=== PATIENT | male | born 1960 | race African-American/Black ===

== ENCOUNTER 2016-05-06 15:55 | Emergency (ER) | payer OTHER ==
[2016-05-06] MEDS ORDERED: ACETAMINOPHEN 325 MG TABLET PO ONE (16:46)
--- NOTE | 2016-05-06 18:24 | ER Document Report ---
ED ENT - General Chief Complaint: Ear Pain Stated Complaint: HEADACHE,EARACHE,CONGESTION Information source: Patient, Relative TRAVEL OUTSIDE OF THE [place] IN LAST 30 DAYS: No - HPI Patient complains to provider of: Ear problem Onset: Yesterday Onset/Duration: Gradual Severity: Moderate Pain Level: 2 Location of pain: Ears - Related Data Allergies/Adverse Reactions: No Known Allergies Allergy (Verified 05/06/16 16:44) Past Medical History - Social History Smoking Status: Current Some Day Smoker Chew tobacco use (# tins/day): No Frequency of alcohol use: Occasional Drug Abuse: None Family History: Reviewed & Not Pertinent Patient has suicidal ideation: No Patient has homicidal ideation: No - Past Medical History Cardiac Medical History: Reports: Hx Hypertension - out of medicine Pulmonary Medical History: Denies: Hx Tuberculosis Neurological Medical History: Denies: Hx Seizures Endocrine Medical History: Reports: Hx Diabetes Mellitus Type 1, Hx Diabetes Mellitus Type 2 Skin Medical History: Denies Hx Eczema, Reports Hx MRSA, Denies Hx Psoriasis Psychiatric Medical History: Reports: Hx Depression Infectious Medical History: Reports: Hx MRSA Past Surgical History: Denies: Hx Pacemaker - Immunizations Immunizations up to date: Yes Hx Diphtheria, Pertussis, Tetanus Vaccination: Yes Review of Systems - Review of Systems Constitutional: No symptoms reported EENT: Ear discharge, Nose congestion, Sinus pressure, Throat pain Cardiovascular: No symptoms reported Respiratory: No symptoms reported Gastrointestinal: No symptoms reported Genitourinary: No symptoms reported Male Genitourinary: No symptoms reported Musculoskeletal: No symptoms reported Skin: No symptoms reported Hematologic/Lymphatic: No symptoms reported Neurological/Psychological: No symptoms reported Physical Exam - Vital signs Vitals: Temp Pulse Resp BP Pulse Ox 97.5 F 109 H 22 H 163/97 H 100 05/06/16 16:18 05/06/16 16:18 05/06/16 16:18 05/06/16 16:18 05/06/16 16:18 Interpretation: Normal - General General appearance: Appears well, Alert - HEENT Head: Normocephalic, Atraumatic Eyes: Normal Pupils: PERRL External canal: Erythema Tympanic membrane: Bulging Hearing loss: Right Sinus: Maxillary, Tenderness Mucous membranes: Normal - Respiratory Respiratory status: No respiratory distress Chest status: Nontender Breath sounds: Normal Chest palpation: Normal - Cardiovascular Rhythm: Regular Heart sounds: Normal auscultation Murmur: No - Abdominal Inspection: Normal Distension: No distension Bowel sounds: Normal Tenderness: Nontender Organomegaly: No organomegaly - Back Back: Normal, Nontender - Extremities General upper extremity: Normal inspection, Nontender, Normal color, Normal ROM , Normal temperature General lower extremity: Normal inspection, Nontender, Normal color, Normal ROM , Normal temperature, Normal weight bearing. No: Sary's sign - Neurological Neuro grossly intact: Yes Cognition: Normal Orientation: AAOx4 [place] Coma Scale Eye Opening: Spontaneous [place] Coma Scale Verbal: Oriented [place] Coma Scale Motor: Obeys Commands [place] Coma Scale Total: 15 Speech: Normal Motor strength normal: LUE, RUE, LLE, RLE Sensory: Normal - Psychological Associated symptoms: Normal affect, Normal mood - Skin Skin Temperature: Warm Skin Moisture: Dry Skin Color: Normal Course - Vital Signs Vital signs: Temp Pulse Resp BP Pulse Ox 97.5 F 109 H 22 H 163/97 H 100 05/06/16 16:18 05/06/16 16:18 05/06/16 16:18 05/06/16 16:18 05/06/16 16:18 Discharge - Discharge Clinical Impression: Otitis media Disposition: HOME, SELF-CARE Additional Instructions: Follow-up with private doctor in 1 to 2 days for final radiology readings please return to the emergency room for any change worsening condition. Follow up with private [facility] for all other routine health care needs. Prescriptions: Amox Tr/Potassium Clavulanate [Augmentin 875-125 Tablet] 1 tab PO BID 10 Days Prednisone [Deltasone 20 mg Tablet] 3 tab PO DAILY 5 Days Forms: Elevated Blood Pressure
[2016-05-06 18:39] VITALS: BP 152/88
== END 2016-05-06 18:39 | disposition home or self-care (01) ==
LOC: ER 15:55
DX: H66.90 Otitis media, unspecified, unspecified ear (principal); R09.81 Nasal congestion; H92.10 Otorrhea, unspecified ear; R07.0 Pain in throat; E11.9 Type 2 diabetes mellitus without complications; I10 Essential (primary) hypertension; F17.200 Nicotine dependence, unspecified, uncomplicated; Z86.14 Personal history of Methicillin resistant Staphylococcus aureus infection
CPT/HCPCS: 99282

== ENCOUNTER 2016-05-26 16:22 | Inpatient (IN) | payer OTHER ==
[2016-05-26] MEDS ORDERED: IBUPROFEN 800 MG TABLET PO ONE (16:54)
--- NOTE | 2016-05-26 16:54 | ER Document Report ---
ED Medical Screen (RME) - General Chief Complaint: Arm Problem Stated Complaint: LEFT ARM PAIN, SEWLLING Time seen by provider: 16:50 Mode of Arrival: Ambulatory Information source: Patient Notes: 55-year-old male presents to ED for cellulitis of his left lower arm to just above his elbow. He states his been red and swollen for up little over a week. He states he has a history of MRSA.. He states he has not been to a doctor for this episode of cellulitis. He states it comes and goes. I have greeted and performed a rapid initial assessment of this patient. A comprehensive ED assessment and evaluation of the patient, analysis of test results and completion of medical decision making process will be conducted by an additional ED providers. TRAVEL OUTSIDE OF THE [place] IN LAST 30 DAYS: No - Related Data Allergies/Adverse Reactions: No Known Allergies Allergy (Verified 05/06/16 16:44) Past Medical History - Past Medical History Cardiac Medical History: Reports: Hx Hypertension - out of medicine Pulmonary Medical History: Denies: Hx Tuberculosis Neurological Medical History: Denies: Hx Seizures Endocrine Medical History: Reports: Hx Diabetes Mellitus Type 1, Hx Diabetes Mellitus Type 2 Skin Medical History: Denies Hx Eczema, Reports Hx MRSA, Denies Hx Psoriasis Psychiatric Medical History: Reports: Hx Depression Infectious Medical History: Reports: Hx MRSA Past Surgical History: Denies: Hx Pacemaker - Immunizations Immunizations up to date: Yes Hx Diphtheria, Pertussis, Tetanus Vaccination: Yes Physical Exam - Vital signs Vitals: Temp Pulse Resp BP Pulse Ox 98.3 F 116 H 24 H 159/106 H 99 05/26/16 16:45 05/26/16 16:45 05/26/16 16:45 05/26/16 16:45 05/26/16 16:45 Course - Vital Signs Vital signs: Temp Pulse Resp BP Pulse Ox 98.3 F 116 H 24 H 159/106 H 99 05/26/16 16:45 05/26/16 16:45 05/26/16 16:45 05/26/16 16:45 05/26/16 16:45
[2016-05-26 17:52] LABS: ABSOLUTE BASOPHILS # (AUTO) 0.1 10^3/uL (0.0-0.2); ABSOLUTE EOSINOPHILS # (AUTO) 0.1 10^3/uL (0.0-0.6); ABSOLUTE LYMPHOCYTES (AUTO) 1.1 10^3/uL (0.5-4.7); ABSOLUTE MONOCYTES (AUTO) 1.4 10^3/uL (0.1-1.4); ABSOLUTE NEUT (AUTO) 13.3 10^3/uL (1.7-8.2); BASOPHILS % (AUTO) 0.7 % (0-2); EOSINOPHILS % (AUTO) 0.4 % (0-6); HEMATOCRIT 39.3 % (37.9-51.0); HEMOGLOBIN 12.4 g/dL (13.5-17.0); HGB HCT DIFFERENCE -2.1; LYMPHOCYTES % (AUTO) 6.8 % (13-45); MEAN CORPUSCULAR HEMOGLOBIN 25.1 pg (27.0-33.4); MEAN CORPUSCULAR HGB CONC 31.6 g/dL (32.0-36.0); MEAN CORPUSCULAR VOLUME 80 fl (80-97); RED BLOOD COUNT 4.95 10^6/uL (4.35-5.55); RED CELL DISTRIBUTION WIDTH 13.9 % (11.5-14.0); SEGMENTED NEUTROPHILS % (AUTO) 83.1 % (42-78)
[2016-05-26 18:09] LABS: ALANINE AMINOTRANSFERASE 51 U/L (21-72); ALBUMIN 3.4 g/dL (3.5-5.0); ALKALINE PHOSPHATASE 146 U/L (38-126); ANION GAP 19 (5-19); ASPARTATE AMINO TRANSFERASE 40 U/L (17-59); BILIRUBIN,TOTAL 0.6 mg/dL (0.2-1.3); BLOOD UREA NITROGEN 21 mg/dL (7-20); CALCIUM 8.8 mg/dL (8.4-10.2); CARBON DIOXIDE 20 mmol/L (22-30); CHLORIDE 95 mmol/L (98-107); CREATININE RESULT 1.58 mg/dL (0.52-1.25); POTASSIUM 5.5 mmol/L (3.6-5.0); TOTAL PROTEIN 6.8 g/dL (6.3-8.2)
[2016-05-26] MEDS ORDERED: VANCOMYCIN HCL INJ 1000 MG VIAL IV ONE (18:24)
--- NOTE | 2016-05-26 18:24 | ER Document Report ---
ED Extremity Problem, Upper - General Chief Complaint: Wound Infection Stated Complaint: LEFT ARM PAIN, SEWLLING Time seen by provider: 18:21 Mode of Arrival: Ambulatory Information source: Patient TRAVEL OUTSIDE OF THE [place] IN LAST 30 DAYS: No - HPI Patient complains to provider of: Pain, Swelling, Left, Arm Onset: Last week Recent injury: No Quality of pain: Achy, Fullness, Pressure Severity of pain: Moderate Pain Level: 5 Exacerbated by: Movement Relieved by: Nothing Similar symptoms previously: Yes Recently seen / treated by doctor: No Notes: 55-year-old male presents to the emergency room complaining of redness swelling and increased warmth to his left upper extremity that's been going on for the past week to week and half and worsening, he denies any fever, no drainage, no injury, patient has a history of MRSA skin infections 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, he reports a history of diabetes and hypertension in the past as well which is been unmedicated for years, stating that he was able to control it with diet and exercise in the past and therefore came off of medications, he has not seen a primary care provider in several years as well - Related Data Allergies/Adverse Reactions: No Known Allergies Allergy (Verified 05/06/16 16:44) Home Medications: Current Home Medications No Home Medications 05/26/16 [History] Past Medical History - General Information source: Patient - Social History Smoking Status: Current Some Day Smoker Family History: Reviewed & Not Pertinent Patient has suicidal ideation: No Patient has homicidal ideation: No - Past Medical History Cardiac Medical History: Reports: Hx Hypertension - out of medicine Pulmonary Medical History: Denies: Hx Tuberculosis Neurological Medical History: Denies: Hx Seizures Endocrine Medical History: Reports: Hx Diabetes Mellitus Type 1, Hx Diabetes Mellitus Type 2 Renal/ Medical History: Denies: Hx Peritoneal Dialysis Skin Medical History: Denies Hx Eczema, Reports Hx MRSA, Denies Hx Psoriasis Psychiatric Medical History: Reports: Hx Depression Infectious Medical History: Reports: Hx MRSA Past Surgical History: Denies: Hx Pacemaker - Immunizations Immunizations up to date: Yes Hx Diphtheria, Pertussis, Tetanus Vaccination: Yes Review of Systems - Review of Systems Constitutional: No symptoms reported EENT: No symptoms reported Cardiovascular: No symptoms reported Respiratory: No symptoms reported Gastrointestinal: No symptoms reported Genitourinary: No symptoms reported Male Genitourinary: No symptoms reported Musculoskeletal: No symptoms reported Skin: See HPI Hematologic/Lymphatic: No symptoms reported Neurological/Psychological: No symptoms reported -: Yes All other systems reviewed and negative Physical Exam - Vital signs Vitals: Temp Pulse Resp BP Pulse Ox 98.3 F 116 H 24 H 159/106 H 99 05/26/16 16:45 05/26/16 16:45 05/26/16 16:45 05/26/16 16:45 05/26/16 16:45 Interpretation: Hypertensive, Tachycardic - General General appearance: Appears well, Alert In distress: None - HEENT Head: Normocephalic, Atraumatic Eyes: Normal Pupils: PERRL - Respiratory Respiratory status: No respiratory distress Chest status: Nontender Breath sounds: Normal Chest palpation: Normal - Cardiovascular Rhythm: Regular Heart sounds: Normal auscultation Murmur: No - Abdominal Inspection: Obese Distension: No distension Bowel sounds: Normal Tenderness: Nontender Organomegaly: No organomegaly - Back Back: Normal, Nontender - Extremities General upper extremity: Normal ROM General lower extremity: Normal inspection, Nontender, Normal color, Normal ROM , Normal temperature, Normal weight bearing. No: Sary's sign Elbow: Other - Patient with increased redness swelling and warmth to the left upper extremity ending inferior elbow forearm, patient has full range of motion in the elbow, distal sensation and motor is intact with 2+ radial pulses and brisk capillary refill, there is no area of palpable fluctuance - Neurological Neuro grossly intact: Yes Cognition: Normal Orientation: AAOx4 [place] Coma Scale Eye Opening: Spontaneous [place] Coma Scale Verbal: Oriented [place] Coma Scale Motor: Obeys Commands [place] Coma Scale Total: 15 Speech: Normal Motor strength normal: LUE, RUE, LLE, RLE Sensory: Normal - Psychological Associated symptoms: Normal affect, Normal mood - Skin Skin Temperature: Warm Skin Moisture: Dry Skin Color: Normal Course - Re-evaluation Re-evalutation: 05/27/16 00:16 Patient with left arm cellulitis, hyperglycemia, started on antibiotics IV fluids, discussed with the hospitalist who agrees to admit for further evaluation and treatment - Vital Signs Vital signs: Temp Pulse Resp BP Pulse Ox 98.3 F 101 H 16 152/74 H 97 05/26/16 16:49 05/26/16 22:55 05/26/16 22:55 05/26/16 22:55 05/26/16 22:55 - Laboratory Result Diagrams: 05/26/16 17:40 05/26/16 17:40 Laboratory results interpreted by me: 05/26/16 05/26/16 05/26/16 17:40 17:40 17:40 WBC 16.0 H Hgb 12.4 L MCH 25.1 L MCHC 31.6 L Seg Neutrophils % 83.1 H Lymphocytes % 6.8 L Absolute Neutrophils 13.3 H Sodium 134.0 L Potassium 5.5 H Chloride 95 L Carbon Dioxide 20 L BUN 21 H Creatinine 1.58 H Est GFR ( Amer) 56 L Est GFR (Non-Af Amer) 46 L Glucose 563 H* Hemoglobin A1c % Serum Osmolality 304 H Alkaline Phosphatase 146 H Albumin 3.4 L 05/26/16 17:40 WBC Hgb MCH MCHC Seg Neutrophils % Lymphocytes % Absolute Neutrophils Sodium Potassium Chloride Carbon Dioxide BUN Creatinine Est GFR ( Amer) Est GFR (Non-Af Amer) Glucose Hemoglobin A1c % > 14.0 H Serum Osmolality Alkaline Phosphatase Albumin Discharge - Discharge Clinical Impression: Left arm cellulitis, Hyperglycemia Condition: Stable Disposition: ADMITTED INPATIENT Admitting Provider: Hospitalist Unit Admitted: Telemetry
[2016-05-26 18:25] LABS: GLUCOSE 563 mg/dL (75-110)
[2016-05-26] MEDS ORDERED: NORMAL SALINE 1000 ML 1,000 ML IV PRN ×2 (18:25→18:33)
[2016-05-26] MEDS ORDERED: GLUCAGON,HUMAN RECOMB 1 MG INJ IM PRN (19:47)
[2016-05-26] MEDS ORDERED: DEXTROSE 40% GEL 15 GM TUBE PO PRN ×2 (19:47)
[2016-05-26] MEDS ORDERED: DEXTROSE 50%-WATER 25 GM/50 ML DISP.SYRIN IV PRN ×2 (19:47)
[2016-05-26] MEDS ORDERED: MAGNESIUM HYDROXIDE SUSP 30 ML UDCUP PO PRN (19:51)
[2016-05-26] MEDS ORDERED: IPRATROPIUM/ALBUTEROL 0.5-2.5 MG/3 ML AMPUL NEB PRN (19:51)
[2016-05-26] MEDS ORDERED: INSULIN REG, HUMAN 100 UNIT/ML 3 ML VIAL (PYX) IV ONE (20:15)
[2016-05-26] MEDS ORDERED: HYDRALAZINE HCL 25 MG TABLET PO ONE (20:30)
[2016-05-26] MEDS ORDERED: CLINDAMYCIN 900 MG/D5W RTU 50 ML IV ONE (20:30)
[2016-05-26] MEDS ORDERED: INSULIN GLARGINE,HUM.REC.ANLOG 300 UNIT/3 ML INSULN.PEN SUBCUT ONE (23:00)
[2016-05-26 23:04] LABS: VENOUS BLOOD BASE EXCESS -4.9 mmol/L; VENOUS BLOOD HCO3 19.3 mmol/L (20-32); VENOUS BLOOD PCO2 32.9 mmHg (35-63); VENOUS BLOOD PH 7.39 (7.30-7.42)
[2016-05-27] MEDS ORDERED: INSULIN GLARGINE,HUM.REC.ANLOG 1,000 UNIT/10 ML UNIT SUBCUT ONE (00:22)
[2016-05-27] MEDS: INSULIN LISPRO 100 UNIT/ML 3 ML VIAL SUBCUT PRN ×5 (00:36→23:47)
[2016-05-27] MEDS: NORMAL SALINE 1000 ML 1,000 ML IV SCH ×2 (00:36→12:23)
[2016-05-27] MEDS: HEPARIN SOD (PORCINE) 5,000 UNIT/ML 1 ML SYRINGE SUBCUT SCH ×3 (00:37→13:24)
[2016-05-27] MEDS ORDERED: VANCOMYCIN HCL 0 MG in DEXTROSE 5%-WATER 250 ML IV NR (03:45)
--- NOTE | 2016-05-27 03:45 | PDOC H&P ---
History of Present Illness Admission Date/PCP: 05/26/16 19:43 Patient complains of: Left forearm pain and swelling History of Present Illness: RONAK GARCIA is a 55 year old male with a past medical history of diet- controlled diabetes, Morbid obesity, Tobacco Dependence and multiple MRSA abscesses. Who had been in his usual state of health until approximately 4 days ago noting pain and swelling and erythema to his left forearm prompting ER evaluation, without open ulcer or exudate, without palpitations or axillary pain. He's found to have markedly erythema swelling in the left forearm with a somewhat reduced range of motion secondary to pain not involving the joint, without obvious fluctuance. He started on empiric vancomycin and referred to the hospitalist for admission. Past Medical History Cardiac Medical History: Reports: Hypertension - out of medicine Pulmonary Medical History: Denies: Tuberculosis Neurological Medical History: Denies: Seizures Endocrine Medical History: Reports: Diabetes Mellitus Type 1, Diabetes Mellitus Type 2, Obesity Skin Medical History: Denies: Eczema, Psoriasis Psychiatric Medical History: Reports: Depression, Tobacco Dependency Infectious Medical History: Reports: Methicillin-Resistant Staph Aureus Past Surgical History Past Surgical History: Denies: Pacemaker Social History Information Source: Patient Lives with: Family Smoking Status: Current Some Day Smoker Cigarettes Packs Per Day: 1 Frequency of Alcohol Use: None Hx Recreational Drug Use: No Drugs: None Hx Prescription Drug Abuse: No - Advance Directive Resuscitation Status: Full Code Family History Family History: CAD, DM Parental Family History Reviewed: Yes Children Family History Reviewed: Yes Sibling(s) Family History Reviewed.: Yes Medication/Allergy Home Medications: No Home Medications 05/26/16 Allergies/Adverse Reactions: No Known Allergies Allergy (Verified 05/06/16 16:44) Review of Systems Constitutional: PRESENT: fatigue. ABSENT: chills, fever(s), headache(s), weight gain, weight loss Eyes: ABSENT: visual disturbances Ears: ABSENT: hearing changes Cardiovascular: ABSENT: chest pain, dyspnea on exertion, edema, orthropnea, palpitations Respiratory: ABSENT: cough, hemoptysis Gastrointestinal: ABSENT: abdominal pain, constipation, diarrhea, hematemesis, hematochezia, nausea, vomiting Genitourinary: PRESENT: other - Polyuria. ABSENT: dysuria, hematuria Musculoskeletal: ABSENT: joint swelling Integumentary: ABSENT: rash, wounds Neurological: ABSENT: abnormal gait, abnormal speech, confusion, dizziness, focal weakness, syncope Psychiatric: ABSENT: anxiety, depression, homidical ideation, suicidal ideation Endocrine: ABSENT: cold intolerance, heat intolerance, polydipsia, polyuria Hematologic/Lymphatic: ABSENT: easy bleeding, easy bruising Physical Exam Vital Signs: Temp Pulse Resp BP Pulse Ox 98.5 F 111 H 19 165/78 H 100 05/27/16 00:09 05/27/16 00:15 05/27/16 00:09 05/27/16 00:09 05/27/16 00:09 Intake & Output 05/25/16 05/26/16 05/27/16 11:59 11:59 11:59 Weight 149.2 kg General appearance: PRESENT: cooperative, mild distress, morbidly obese Head exam: PRESENT: atraumatic, normocephalic Eye exam: PRESENT: conjunctiva pink, EOMI, PERRLA. ABSENT: scleral icterus Ear exam: PRESENT: normal external ear exam Mouth exam: PRESENT: moist, tongue midline Neck exam: ABSENT: carotid bruit, JVD, lymphadenopathy, thyromegaly Respiratory exam: PRESENT: clear to auscultation dick. ABSENT: rales, rhonchi, wheezes Cardiovascular exam: PRESENT: RRR. ABSENT: diastolic murmur, rubs, systolic murmur Pulses: PRESENT: normal dorsalis pedis pul Vascular exam: PRESENT: normal capillary refill GI/Abdominal exam: PRESENT: normal bowel sounds, soft. ABSENT: distended, guarding, mass, organolmegaly, rebound, tenderness Rectal exam: PRESENT: deferred Extremities exam: PRESENT: tenderness - Circumferential erythema to the left proximal forearm no open ulcer, fluctuance or exudate. ABSENT: joint swelling, pedal edema Musculoskeletal exam: PRESENT: tenderness - Left forearm tenderness with reduced range of motion secondary to tenderness no joint effusion. ABSENT: full ROM, normal inspection Neurological exam: PRESENT: alert, awake, oriented to person, oriented to place , oriented to time, oriented to situation, CN II-XII grossly intact. ABSENT: motor sensory deficit Psychiatric exam: PRESENT: appropriate affect, normal mood. ABSENT: homicidal ideation, suicidal ideation Skin exam: PRESENT: dry, erythema, intact. ABSENT: abrasion, cyanosis, jaundice Results Laboratory Results: 05/26/16 22:50 VBG pH 7.39 VBG pCO2 32.9 L VBG HCO3 19.3 L VBG Base Excess -4.9 Assessment & Plan - Diagnosis (1) Left arm cellulitis Is this a current diagnosis for this admission?: YesPlan: Collocated by History of MRSA and uncontrolled diabetes. vancomycin empirically in addition to clindamycin and symptomatically management,blood cultures pending follow-up CBC and chemistry (2) Diabetes 1.5, managed as type 1 Is this a current diagnosis for this admission?: YesPlan: Initiation of Lantus 20 twice a day and Humalog sliding scale will obtain an A1c , consider dietitian consult (3) Morbid obesity with BMI of 40.0-44.9, adult Is this a current diagnosis for this admission?: YesPlan: Avoid sedation will obtain dietitian consult (4) Hypertension Is this a current diagnosis for this admission?: YesPlan: Cozaar and hydralazine initiated (5) Tobacco abuse Is this a current diagnosis for this admission?: YesPlan: Tobacco Dependence patient received tobacco cessation counseling and offered nicotine replacement options (6) Acute renal failure Is this a current diagnosis for this admission?: YesPlan: Likely secondary to acute illness but collocated by a history of hypertension diabetes will IV fluid challenge avoid nephrotoxic meds and doses and reevaluate chemistry - Time Time Spent: 50 to 70 Minutes
[2016-05-27] MEDS ORDERED: VANCOMYCIN HCL INJ 1000 MG VIAL ONE (05:02)
[2016-05-27] MEDS: VANCOMYCIN HCL 1,000 MG in DEXTROSE 5%-WATER 250 ML IV SCH ×2 (05:10→07:15)
[2016-05-27] MEDS: HYDRALAZINE HCL 25 MG TABLET PO SCH ×3 (05:22→23:47)
[2016-05-27] MEDS: ACETAMINOPHEN 325 MG TABLET PO PRN ×3 (05:22→21:08)
[2016-05-27] MEDS ORDERED: CLINDAMYCIN 900 MG/D5W RTU 50 ML IV SCH (06:00)
[2016-05-27 06:28] LABS: ABSOLUTE BASOPHILS # (AUTO) 0.1 10^3/uL (0.0-0.2); ABSOLUTE EOSINOPHILS # (AUTO) 0.1 10^3/uL (0.0-0.6); ABSOLUTE LYMPHOCYTES (AUTO) 1.2 10^3/uL (0.5-4.7); ABSOLUTE MONOCYTES (AUTO) 1.5 10^3/uL (0.1-1.4); ABSOLUTE NEUT (AUTO) 10.9 10^3/uL (1.7-8.2); BASOPHILS % (AUTO) 0.4 % (0-2); EOSINOPHILS % (AUTO) 0.7 % (0-6); HEMATOCRIT 34.5 % (37.9-51.0); HEMOGLOBIN 11.1 g/dL (13.5-17.0); HGB HCT DIFFERENCE -1.2; LYMPHOCYTES % (AUTO) 8.8 % (13-45); MEAN CORPUSCULAR HEMOGLOBIN 25.1 pg (27.0-33.4); MEAN CORPUSCULAR HGB CONC 32.1 g/dL (32.0-36.0); MEAN CORPUSCULAR VOLUME 78 fl (80-97); MONOCYTES % (AUTO) 10.9 % (3-13); RED BLOOD COUNT 4.42 10^6/uL (4.35-5.55); RED CELL DISTRIBUTION WIDTH 13.7 % (11.5-14.0); SEGMENTED NEUTROPHILS % (AUTO) 79.2 % (42-78); WHITE BLOOD COUNT 13.8 10^3/uL (4.0-10.5)
[2016-05-27 06:46] LABS: ANION GAP 16 (5-19); BLOOD UREA NITROGEN 19 mg/dL (7-20); CALCIUM 8.3 mg/dL (8.4-10.2); CARBON DIOXIDE 19 mmol/L (22-30); CHLORIDE 100 mmol/L (98-107); CREATININE RESULT 1.26 mg/dL (0.52-1.25); GLUCOSE 368 mg/dL (75-110); POTASSIUM 4.6 mmol/L (3.6-5.0); SODIUM 134.6 mmol/L (137-145)
[2016-05-27] MEDS ORDERED: DOCUSATE SODIUM 100 MG/10 ML UDC PO SCH (10:00)
[2016-05-27] MEDS: CLINDAMYCIN 900 MG/D5W RTU 50 ML IV SCH ×2 (10:04→17:01)
[2016-05-27] MEDS: INSULIN GLARGINE,HUM.REC.ANLOG 300 UNIT/3 ML INSULN.PEN SUBCUT SCH ×2 (10:04→23:46)
[2016-05-27] MEDS: LOSARTAN POTASSIUM 50 MG TABLET PO SCH (10:05)
[2016-05-27] MEDS: DOCUSATE SODIUM 100 MG CAPSULE PO SCH ×2 (10:06→17:01)
[2016-05-27] MEDS ORDERED: METOPROLOL TARTRATE PF/INJ 5 MG/5 ML SDV IV ONE (15:06)
--- NOTE | 2016-05-27 15:31 | PDOC PROGRESS REPORT ---
Subjective Progress Note for:: 05/27/16 Subjective:: RONAK GARCIA is a 55 year old male with a past medical history of diet- controlled diabetes, Morbid obesity, Tobacco Dependence and multiple MRSA abscesses. Who had been in his usual state of health until approximately 4 days ago noting pain and swelling and erythema to his left forearm prompting ER evaluation, without open ulcer or exudate, without palpitations or axillary pain. He's found to have markedly erythema swelling in the left forearm with a somewhat reduced range of motion secondary to pain not involving the joint, without obvious fluctuance. He started on empiric vancomycin and referred to the hospitalist for admission. He now reports to me formation of a blister on the olecranon bursa. He denies fevers chills, continues to complain of pain and swelling in the arm. Nurses also noted with minimal exertion today he went into a short burst of atrial fibrillation with rapid ventricular rate into the 180s, once they got back into bed and settled him down some his heart rate also slowed back 104 and appears to be converted back to sinus tachycardia. ROS: Total 10 systems are reviewed with the patient pertinent positives and negatives noted above. Remaining systems are negative. Physical Exam Vital Signs: Temp Pulse Resp BP Pulse Ox 99.2 F 109 H 19 153/82 H 97 05/27/16 12:26 05/27/16 14:00 05/27/16 12:26 05/27/16 12:26 05/27/16 12:26 Intake & Output 05/26/16 05/27/16 05/28/16 06:59 06:59 06:59 Intake Total 1755 600 Balance 1755 600 Weight 149.2 kg General appearance: PRESENT: no acute distress, obese, well-developed Head exam: PRESENT: atraumatic, normocephalic Eye exam: PRESENT: conjunctival injection, EOMI, PERRLA Mouth exam: PRESENT: dry mucosa Neck exam: PRESENT: full ROM. ABSENT: JVD Respiratory exam: PRESENT: clear to auscultation dick, unlabored. ABSENT: accessory muscle use Cardiovascular exam: PRESENT: tachycardia - As per history of present illness, currently in sinus tachycardia Pulses: PRESENT: normal radial pulses - Even in the affected arm, normal dorsalis pedis pul Vascular exam: PRESENT: normal capillary refill GI/Abdominal exam: PRESENT: normal bowel sounds, soft. ABSENT: guarding, tenderness Musculoskeletal exam: ABSENT: full ROM - Limited range of motion in the left upper extremity due to the degree of edema, there is no axillary adenopathy, there is peau d'orange changes to the skin of the forearm. Neurological exam: PRESENT: alert, awake, oriented to person, oriented to place , oriented to time Psychiatric exam: PRESENT: appropriate affect, normal mood Skin exam: PRESENT: rash - Tiny 4 mm oval raised bullae over the olecranon bursa with cloudy fluid visible, warm Results Laboratory Results: 05/27/16 05:21 05/27/16 05:21 05/26/16 05/27/16 05/27/16 22:50 05:21 05:21 WBC 13.8 H RBC 4.42 Hgb 11.1 L Hct 34.5 L MCV 78 L MCH 25.1 L MCHC 32.1 RDW 13.7 Plt Count 256 Seg Neutrophils % 79.2 H Lymphocytes % 8.8 L Monocytes % 10.9 Eosinophils % 0.7 Basophils % 0.4 Absolute Neutrophils 10.9 H Absolute Lymphocytes 1.2 Absolute Monocytes 1.5 H Absolute Eosinophils 0.1 Absolute Basophils 0.1 VBG pH 7.39 VBG pCO2 32.9 L VBG HCO3 19.3 L VBG Base Excess -4.9 Sodium 134.6 L Potassium 4.6 Chloride 100 Carbon Dioxide 19 L Anion Gap 16 BUN 19 Creatinine 1.26 H Est GFR ( Amer) > 60 Est GFR (Non-Af Amer) > 60 Glucose 368 H Calcium 8.3 L Assessment & Plan - Diagnosis (1) Left arm cellulitis Is this a current diagnosis for this admission?: YesPlan: With history of MRSA cellulitis and abscess formation. We'll check MRI of the arm looking for fluid collection, deep tissue infection. No signs of compartment syndrome. Continue vancomycin and clindamycin. (2) Atrial fibrillation Qualifiers: Atrial fibrillation type: unspecified Qualified Code(s): I48.91 - Unspecified atrial fibrillation Is this a current diagnosis for this admission?: YesPlan: Appears to be new onset, possibly related to the above. Paroxysmal in nature. Start empiric full dose Lovenox. Continue to monitor on telemetry, check cardiac enzymes and echocardiogram. Start on scheduled Toprol-XL and monitor for effect. (3) Acute renal failure Is this a current diagnosis for this admission?: YesPlan: Continue IV fluids and trend BUN/creatinine. (4) Diabetes 1.5, managed as type 1 Is this a current diagnosis for this admission?: YesPlan: Poorly controlled with hemoglobin A1c greater than 14. Continue sliding scale for now but likely go home on basal bolus regimen. (5) Hypertension Qualifiers: Hypertension type: essential hypertension Qualified Code(s): I10 - Essential (primary) hypertension Is this a current diagnosis for this admission?: YesPlan: Accelerated hypertension. Added Toprol as noted above. Titrate regimen to effect. (6) Morbid obesity with BMI of 40.0-44.9, adult Is this a current diagnosis for this admission?: YesPlan: Counseled regarding diet and exercise and lifestyle. (7) Tobacco abuse Is this a current diagnosis for this admission?: YesPlan: Confirms high levels of stress in the home not interested in cessation counseling at this time. - Time Time Spent with patient: 35 or more minutes
[2016-05-27] MEDS: VANCOMYCIN HCL 1,500 MG in DEXTROSE 5%-WATER 250 ML IV SCH (18:06)
[2016-05-27] MEDS: ENOXAPARIN SODIUM INJ 150 MG/1 ML DISP.SYRIN SUBCUT SCH (18:06)
[2016-05-27] MEDS: METOPROLOL SUCCINATE 25 MG TAB.SR.24H PO SCH (23:47)
[2016-05-28] MEDS: OXYCODONE HCL IR 5 MG TABLET PO PRN ×2 (02:29→11:24)
[2016-05-28] MEDS: CLINDAMYCIN 900 MG/D5W RTU 50 ML IV SCH ×2 (02:29→09:38)
[2016-05-28 06:09] LABS: ABSOLUTE BASOPHILS # (AUTO) 0.1 10^3/uL (0.0-0.2); ABSOLUTE EOSINOPHILS # (AUTO) 0.1 10^3/uL (0.0-0.6); ABSOLUTE LYMPHOCYTES (AUTO) 1.2 10^3/uL (0.5-4.7); ABSOLUTE MONOCYTES (AUTO) 1.4 10^3/uL (0.1-1.4); ABSOLUTE NEUT (AUTO) 12.9 10^3/uL (1.7-8.2); BASOPHILS % (AUTO) 0.7 % (0-2); EOSINOPHILS % (AUTO) 0.6 % (0-6); HEMATOCRIT 33.8 % (37.9-51.0); HEMOGLOBIN 10.8 g/dL (13.5-17.0); HGB HCT DIFFERENCE -1.4; LYMPHOCYTES % (AUTO) 7.9 % (13-45); MEAN CORPUSCULAR VOLUME 78 fl (80-97); MONOCYTES % (AUTO) 9.1 % (3-13); RED BLOOD COUNT 4.33 10^6/uL (4.35-5.55); SEGMENTED NEUTROPHILS % (AUTO) 81.7 % (42-78); WHITE BLOOD COUNT 15.8 10^3/uL (4.0-10.5)
[2016-05-28] MEDS: HYDRALAZINE HCL 25 MG TABLET PO SCH (06:20)
[2016-05-28 06:30] LABS: ANION GAP 12 (5-19); BLOOD UREA NITROGEN 19 mg/dL (7-20); CARBON DIOXIDE 21 mmol/L (22-30); CHLORIDE 102 mmol/L (98-107); CREATININE RESULT 1.29 mg/dL (0.52-1.25); GLUCOSE 258 mg/dL (75-110); POTASSIUM 4.2 mmol/L (3.6-5.0); SODIUM 135.2 mmol/L (137-145)
[2016-05-28] MEDS: ENOXAPARIN SODIUM INJ 150 MG/1 ML DISP.SYRIN SUBCUT SCH (06:39)
[2016-05-28] MEDS: VANCOMYCIN HCL 1,500 MG in DEXTROSE 5%-WATER 250 ML IV SCH (06:39)
--- NOTE | 2016-05-28 07:48 | PDOC CONSULTATION ---
History of Present Illness Admission Date/PCP: 05/26/16 19:51 History of Present Illness: RONAK GARCIA is a 55 year old -[place] male with history of diabetes, hypertension, morbid obesity, tobacco dependence, MRSA perianal abscess drained 5 or 6 years ago. He reports that he has not taken any medication for 7-8 years. His admission blood glucose was well into the 500s. His A1c was greater than 14. He reports a 2 week history of gradual swelling, redness and pain in his left forearm. He reports this began in the left elbow and gradually spread down to his wrist. He expected an abscess to form, but it never did. There was no drainage. There is no blistering. He reports he can still straighten is elbow completely, but occasionally has pain with straightening it, or will need to take 2 or 3 attempts to straighten it. He denies seizures, tremors, dizziness, chest pain, shortness breath, abdominal pain, leg swelling, itching. He reports that when admitted to the hospital he would without eating and was in radiology department for over 12 hours and eventually became tired and slightly lightheaded upon standing. He believes this is due to combination of not eating as well as being given blood pressure medications which he has not taken for years. He was admitted on 05/26/2016 in the evening. He has been started on broad-spectrum antibiotics. He reports that overall since admission, he feels better systemically. However, he feels the arm is relatively unchanged since admission. MRI was obtained. Results that revealed myositis, inflammatory phlegmon without drainable fluid collection , early fasciitis. Orthopedic consultation was recommended. No orthopedic consultation was available, and therefore general surgery was asked see the patient in consultation by the on-call hospitalist. Past Medical History Cardiac Medical History: Reports: Hypertension Pulmonary Medical History: Denies: Tuberculosis Neurological Medical History: Denies: Seizures Endocrine Medical History: Reports: Diabetes Mellitus Type 2, Obesity Skin Medical History: Denies: Eczema, Psoriasis Psychiatric Medical History: Reports: Depression, Tobacco Dependency Infectious Medical History: Reports: Methicillin-Resistant Staph Aureus Past Surgical History Past Surgical History: Reports: Other - Incision and drainage perirectal abscess 6 years ago. Social History Information Source: Patient Lives with: Family Smoking Status: Current Some Day Smoker Cigars Per Day: 4 - 3 or 4 black and mild's daily Frequency of Alcohol Use: Occasional - Approximately a 6 pack per weekend. Hx Recreational Drug Use: No Drugs: None Hx Prescription Drug Abuse: No - Advance Directive Resuscitation Status: Full Code Family History Family History: DM Parental Family History Reviewed: Yes Children Family History Reviewed: Yes Sibling(s) Family History Reviewed.: Yes Medication/Allergy Home Medications: No Home Medications 05/26/16 Allergies/Adverse Reactions: No Known Allergies Allergy (Verified 05/06/16 16:44) Review of Systems All systems: reviewed and no additional remarkable complaints except as stated Physical Exam Vital Signs: Temp Pulse Resp BP Pulse Ox 98.4 F 100 18 130/72 H 100 05/28/16 04:19 05/28/16 04:19 05/28/16 04:19 05/28/16 04:19 05/28/16 04:19 Intake & Output 05/27/16 05/28/16 05/29/16 06:59 06:59 06:59 Intake Total 1755 3599 Balance 1755 3599 Weight 149.2 kg 149.2 kg General appearance: PRESENT: no acute distress, morbidly obese Head exam: PRESENT: normocephalic Eye exam: PRESENT: EOMI Mouth exam: PRESENT: tongue midline Neck exam: ABSENT: JVD, lymphadenopathy, tenderness, thyromegaly, tracheal deviation Respiratory exam: PRESENT: clear to auscultation dick Cardiovascular exam: PRESENT: RRR - borderline tachycardia GI/Abdominal exam: PRESENT: soft. ABSENT: distended, tenderness Extremities exam: PRESENT: tenderness, other - Left forearm with erythema, induration, tenderness from elbow down to wrist. Still has full range of motion , but with tenderness at the elbow. 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 No motor or sensory deficits. No blistering. No drainage. No fluctuant area. No crepitus.. ABSENT: pedal edema Musculoskeletal exam: PRESENT: tenderness Neurological exam: PRESENT: alert, oriented to person, oriented to place, oriented to time, oriented to situation Psychiatric exam: PRESENT: appropriate affect, normal mood Results Laboratory Results: 05/28/16 05:16 05/28/16 05:16 05/28/16 05/28/16 05:16 05:16 WBC 15.8 H RBC 4.33 L Hgb 10.8 L Hct 33.8 L MCV 78 L MCH 25.0 L MCHC 32.0 RDW 14.0 Plt Count 269 Seg Neutrophils % 81.7 H Lymphocytes % 7.9 L Monocytes % 9.1 Eosinophils % 0.6 Basophils % 0.7 Absolute Neutrophils 12.9 H Absolute Lymphocytes 1.2 Absolute Monocytes 1.4 Absolute Eosinophils 0.1 Absolute Basophils 0.1 Sodium 135.2 L Potassium 4.2 Chloride 102 Carbon Dioxide 21 L Anion Gap 12 BUN 19 Creatinine 1.29 H Est GFR ( Amer) > 60 Est GFR (Non-Af Amer) 58 L Glucose 258 H Calcium 8.0 L 05/27/16 05/27/16 05/28/16 16:05 23:26 05:16 Troponin I 0.030 0.030 0.044 Impressions: Upper Extremity MRI 05/27/16 00:00 IMPRESSION: 13 cm complex phlegmonous mass with myositis/cellulitis. There is evidence of early fasciitis. Differential diagnosis includes other infectious, inflammatory, and neoplastic etiologies. Orthopedic consultation recommended. Assessment & Plan - Diagnosis (1) Myositis of left forearm Is this a current diagnosis for this admission?: YesPlan: Myositis, cellulitis and early fasciitis of the left forearm. Clinically, the patient has no evidence of necrotizing fasciitis: No crepitus, no blistering, no drainage. I spoke directly with the radiologist who stated that he saw no evidence of necrotizing fasciitis. Rather, the fasciitis was associated with the generalized inflammatory change. Additionally he did not see any drainable abscess, nor did I discover any drainable fluid collection on exam. Other than borderline tachycardia, the patient is clinically stable and describes this process as occurring gradually over 2 weeks. The radiologist recommended orthopedic consultation. Again, since orthopedic consultation was not available , I was asked to see the patient. I would agree with the radiologist that orthopedic consultation should be obtained to monitor this evolving process. I spoke with the hospitalist medical certification specialist and conveyed that recommendation to him. General surgery will sign off. (2) Left arm cellulitis Is this a current diagnosis for this admission?: Yes
[2016-05-28 09:23] VITALS: BP 130/69
[2016-05-28] MEDS: LOSARTAN POTASSIUM 50 MG TABLET PO SCH (09:37)
[2016-05-28] MEDS: DOCUSATE SODIUM 100 MG CAPSULE PO SCH (09:37)
[2016-05-28] MEDS: METOPROLOL SUCCINATE 25 MG TAB.SR.24H PO SCH (09:38)
[2016-05-28] MEDS: ACETAMINOPHEN 325 MG TABLET PO PRN (09:39)
[2016-05-28] MEDS: INSULIN LISPRO 100 UNIT/ML 3 ML VIAL SUBCUT PRN (10:24)
[2016-05-28] MEDS: INSULIN GLARGINE,HUM.REC.ANLOG 300 UNIT/3 ML INSULN.PEN SUBCUT SCH (10:24)
--- NOTE | 2016-05-28 11:19 | PDOC TRANSFER SUMMARY ---
General Admission Date/PCP: 05/26/16 19:51 Transfer Date: 05/28/16 Accepting Facility: [facility] Accepting Physician: dr arriaga, general surgery Resuscitation Status: Full Code - Transfer Diagnosis (1) Left arm cellulitis Is this a current diagnosis for this admission?: YesDiagnosis Summary: Complex phlegmon of the left forearm in need of surgical exploration and debridement in a patient with poorly controlled diabetes and history of MRSA cellulitis. Transfer to [facility]. Continue vancomycin and clindamycin. (2) Atrial fibrillation Is this a current diagnosis for this admission?: NoDiagnosis Summary: Ruled out. Actually a sinus tachycardia related to sepsis from the above. (3) Acute renal failure Is this a current diagnosis for this admission?: YesDiagnosis Summary: Quite possibly his new baseline, no old records for comparison. Continues to make good urine and his serum creatinine is holding at 1.2 (4) Diabetes 1.5, managed as type 1 Is this a current diagnosis for this admission?: YesDiagnosis Summary: Poorly controlled with a hemoglobin A1c greater than 14 contributive to the severity of his cellulitis and sepsis. (5) Hypertension Is this a current diagnosis for this admission?: YesDiagnosis Summary: Titrate regimen as needed (6) Morbid obesity with BMI of 40.0-44.9, adult Is this a current diagnosis for this admission?: YesDiagnosis Summary: Counseled regarding diet and excised (7) Tobacco abuse Is this a current diagnosis for this admission?: YesDiagnosis Summary: Due to high social stressors, only marginally interested in tobacco cessation at this time. - Transfer Medications Home Medications: No Home Medications 05/26/16 Transfer Medications: Current Medications Acetaminophen (Tylenol 325 Mg Tablet) 650 mg PO Q4HP PRN Stop: 06/25/16 19:50 Last Admin: 05/28/16 09:39 Dose: 650 mg Albuterol/Ipratropium (Duoneb 3 Ml Ampul) 3 ml NEB RTQ8HP PRN Stop: 06/25/16 19:50 Dextrose (Dextrose Inj 50% Syringe (25 Gm/50 Ml)) 12.5 gm IV PRN PRN; Protocol PRN Reason: FOR BG 50-69 IN ALERT PATIENT Stop: 06/25/16 19:46 Dextrose (Dextrose Inj 50% Syringe (25 Gm/50 Ml)) 25 gm IV PRN PRN PRN Reason: Protocol Stop: 06/25/16 19:46 Docusate Sodium (Colace 100 Mg Capsule) 100 mg PO BID [facility] Stop: 06/26/16 09:59 Last Admin: 05/28/16 09:37 Dose: 100 mg Enoxaparin Sodium (Lovenox Inj 150 Mg/1 Ml Disp.Syrin) 150 mg SUBCUT Q12A [facility] Stop: 06/26/16 17:59 Last Admin: 05/28/16 06:39 Dose: 150 mg Glucagon (Glucagen Inj 1 Mg Vial) 1 mg IM PRN PRN; Protocol PRN Reason: Evaluate for BG < 70 Stop: 06/25/16 19:46 Glucose (Glutose 40% Gel 15 Gm Tube) 15 gm PO PRN PRN; Protocol PRN Reason: FOR BG 50-69 IN ALERT PATIENT Stop: 06/25/16 19:46 Glucose (Glutose 40% Gel 15 Gm Tube) 30 gm PO PRN PRN; Protocol PRN Reason: FOR BG < 50 IN ALERT PATIENT Stop: 06/25/16 19:46 Hydralazine HCl (Apresoline 25 Mg Tablet) 25 mg PO Q8 [facility] Stop: 06/26/16 05:59 Last Admin: 05/28/16 06:20 Dose: Not Given Sodium Chloride (Nacl 0.9% 1000 Ml Iv Soln) 1,000 mls @ 500 mls/hr IV X 3 BAGS [facility] Stop: 06/25/16 19:59 Last Admin: 05/27/16 12:23 Dose: 1,000 ml Clindamycin Phosphate/Dextrose (Cleocin Rtu 900 Mg/D5w 50 Ml Premix) 50 mls @ 50 mls/hr IV Q8A [facility] Stop: 06/03/16 09:59 Last Admin: 05/28/16 09:38 Dose: 50 ml Vancomycin HCl 1,500 mg/ (Dextrose) 250 mls @ 166.667 mls/hr IV Q12A [facility] Stop: 06/03/16 17:59 Last Admin: 05/28/16 06:39 Dose: 1,500 mg Insulin Glargine (Lantus Insulin Inj 300 Unit/3 Ml Pen) 20 unit SUBCUT Q12 [facility] Stop: 06/26/16 09:59 Last Admin: 05/28/16 10:24 Dose: 20 unit Insulin Human Lispro (Humalog Insulin 100 Unit/1 Ml 3 Ml Vial) 0 - 12 unit SUBCUT ACHSP PRN PRN Reason: Protocol Stop: 06/25/16 19:46 Last Admin: 05/28/16 10:24 Dose: 4 unit Losartan Potassium (Cozaar 50 Mg Tablet) 100 mg PO DAILY [facility] Stop: 06/26/16 09:59 Last Admin: 05/28/16 09:37 Dose: 100 mg Magnesium Hydroxide (Milk Of Magnesia 30 Ml Udcup) 30 ml PO HSP PRN Stop: 06/25/16 19:50 Metoprolol Succinate (Toprol Xl 25 Mg Tab.Sr) 25 mg PO Q12 [facility] Stop: 06/26/16 21:59 Last Admin: 05/28/16 09:38 Dose: 25 mg Oxycodone HCl (Oxy-Ir 5 Mg Tablet) 5 mg PO Q8HP PRN Stop: 06/04/16 00:31 Last Admin: 05/28/16 02:29 Dose: 5 mg - Allergies Allergies/Adverse Reactions: No Known Allergies Allergy (Verified 05/06/16 16:44) - Diet/Activity Discharge Diet: Other (Comments) - Nothing by mouth anticipating surgery Hospital Course Hospital Course: RONAK GARCIA is a 55 year old male with a past medical history of diet- controlled diabetes, Morbid obesity, Tobacco Dependence and multiple MRSA abscesses. Who had been in his usual state of health until approximately 4 days ago noting pain and swelling and erythema to his left forearm prompting ER evaluation, without open ulcer or exudate, without palpitations or axillary pain. He's found to have markedly erythema swelling in the left forearm with a somewhat reduced range of motion secondary to pain not involving the joint, without obvious fluctuance. He started on empiric vancomycin and referred to the hospitalist for admission who added clindamycin. He now reports to me formation of a blister on the olecranon bursa started 7- 10d ago before spreading to the cellulitis we now see. He denies fevers chills , continues to complain of pain and swelling in the arm limiting his ROM but no paresthesias, loss of motor function. Nurses also noted with minimal exertion yesterday he went into a short burst of narrow complex tachycardia with rate into the 180s initially thought to be afib but once they got him back into bed and settled him down some his heart rate also slowed back 104 and appears to be simple sinus tachycardia. His MRI report came back late last night and shows complex fluid collection of the deep tissues suggestive of phlegmon with myositis and deep tissue penetration. Covering charcoal unloader, Dr Kumar, consulted Dr Vogel, general surgery who states: "Myositis, cellulitis and early fasciitis of the left forearm. Clinically, the patient has no evidence of necrotizing fasciitis: No crepitus, no blistering, no drainage. I spoke directly with the radiologist who stated that he saw no evidence of necrotizing fasciitis. Rather, the fasciitis was associated with the generalized inflammatory change. Additionally he did not see any drainable abscess, nor did I discover any drainable fluid collection on exam. Other than borderline tachycardia, the patient is clinically stable and describes this process as occurring gradually over 2 weeks. The radiologist recommended orthopedic consultation. Again, since orthopedic consultation was not available, I was asked to see the patient. I would agree with the radiologist that orthopedic consultation should be obtained to monitor this evolving process. I spoke with the hospitalist consumer sales representative and conveyed that recommendation to him. General surgery will sign off." I have spoken with Dr Arriaga, general surgery at [facility], who graciously accepted him in transfer for urgent surgical exploration and debridement. The patient remains hemoglobin clinically stable with only a mild sinus tachycardia noted on the monitor with heart rate ranging in the high 90s to low 100s, he is afebrile. Physical exam as noted below, importantly no evidence of compartment syndrome at the bedside at present. Physical Exam Vital Signs: Temp Pulse Resp BP Pulse Ox 98.4 F 90 19 130/69 H 100 05/28/16 08:44 05/28/16 08:44 05/28/16 08:44 05/28/16 08:44 05/28/16 08:44 Intake & Output 05/27/16 05/28/16 05/29/16 06:59 06:59 06:59 Intake Total 1755 3599 Balance 1755 3599 Weight 149.2 kg 149.2 kg General appearance: PRESENT: no acute distress, obese, well-developed, well- nourished Head exam: PRESENT: atraumatic, normocephalic Eye exam: PRESENT: conjunctiva pink, EOMI, PERRLA. ABSENT: scleral icterus Neck exam: ABSENT: carotid bruit, JVD, lymphadenopathy, thyromegaly Respiratory exam: PRESENT: crackles - Coarse breath sounds bilateral. ABSENT: rales, rhonchi, wheezes Cardiovascular exam: PRESENT: RRR, tachycardia - Sinus tach on the monitor; review of the telemetry strips indicate no evidence of atrial fibrillation. Pulses: PRESENT: normal radial pulses Vascular exam: PRESENT: normal capillary refill. ABSENT: pallor GI/Abdominal exam: PRESENT: normal bowel sounds, soft. ABSENT: distended, guarding, rebound, tenderness Extremities exam: ABSENT: calf tenderness, pedal edema Musculoskeletal exam: PRESENT: ambulatory. ABSENT: full ROM - Limited range of motion of the left forearm due to pain with extension at the elbow Neurological exam: PRESENT: alert, awake, oriented to person, oriented to place , oriented to time Psychiatric exam: PRESENT: appropriate affect, normal mood Skin exam: PRESENT: erythema - Diffuse erythema just distal to the left elbow and encompassing most of the left forearm circumferentially, hot to the touch, very tender to touch. Good range of motion at the wrist and fingers, some pain noted in the forearm with resistance to hyper extension of the wrist Results Laboratory Results: 05/28/16 05:16 05/28/16 05:16 05/28/16 05/28/16 05:16 05:16 WBC 15.8 H RBC 4.33 L Hgb 10.8 L Hct 33.8 L MCV 78 L MCH 25.0 L MCHC 32.0 RDW 14.0 Plt Count 269 Seg Neutrophils % 81.7 H Lymphocytes % 7.9 L Monocytes % 9.1 Eosinophils % 0.6 Basophils % 0.7 Absolute Neutrophils 12.9 H Absolute Lymphocytes 1.2 Absolute Monocytes 1.4 Absolute Eosinophils 0.1 Absolute Basophils 0.1 Sodium 135.2 L Potassium 4.2 Chloride 102 Carbon Dioxide 21 L Anion Gap 12 BUN 19 Creatinine 1.29 H Est GFR ( Amer) > 60 Est GFR (Non-Af Amer) 58 L Glucose 258 H Calcium 8.0 L 05/27/16 05/27/16 05/28/16 16:05 23:26 05:16 Troponin I 0.030 0.030 0.044 Impressions: Upper Extremity MRI 05/27/16 00:00 IMPRESSION: 13 cm complex phlegmonous mass with myositis/cellulitis. There is evidence of early fasciitis. Differential diagnosis includes other infectious, inflammatory, and neoplastic etiologies. Orthopedic consultation recommended. Status: Imported from PACS Plan Discharge Plan: Transfer to [facility] anticipating surgical debridement and exploration. Time Spent: Greater than 30 Minutes
--- NOTE | 2016-05-28 19:38 | Progress Note ---
[id number] was reviewed and discussed with the interpreting radiologist. I subsequently discussed the patient by phone with our on-call general surgeon . No on-call orthopedics at that time or later today. Dr. Vogel went to the patient's bedside and evaluated the patient, and he and I subsequently discussed the patient. He overall is not comfortable managing the patient himself. Did not feel the patient had necrotizing fasciitis, however. Recommended orthopedic consultation. [id number], went to the patient's bedside. Awake alert pleasant and cooperative. 98 % saturation on room air. Blood pressure 104/81. Pulse 103 and regular. Respirations 19 and unlabored. Temperature 99.5. Morbidly obese Otherwise well-developed -[place] male appearing approximately his stated age. Pleasant awake alert and cooperative. Mild discomfort involving his left forearm. Mildly anxious, although no ubaldo agitation. Examination revealed moderate soft tissue swelling of the proximal two thirds of the left forearm. Soft, moderately tender to palpation. No crepitus fluctuance or expressible discharge. No blistering. No sloughing of skin. No specific skin entrance site noted. No clinical evidence of compartment syndrome. Light touch intact at hand. Hand warm and dry. Hand tax collector 5 over 5. Transfer to a tertiary center recommended to patient. He agreed. At 5:20 AM this morning, I spoke with the transfer center at [facility]. 5:39 AM, I discussed the patient by phone with Dr. Taylor on-call hospitalist at [facility], with the hospitalist service normally accepting admissions for orthopedics. Patient discussed in detail. Patient graciously accepted for transfer to [facility], but unfortunately no available beds, with patient placed on a waiting list. Patient was discussed in detail with daytime hospitalist team.
== END 2016-05-28 12:32 | disposition short-term general hospital (02) | DRG 872 ==
LOC: ER 16:22 → EH 19:43 → UNDOADMIN 19:43 → EH 19:51 → EEVIPCON 19:51 → 4S 23:58 → EH 23:58
PROVIDERS: ADMIT Internal Medicine; ATTEND Internal Medicine
PROC: 3E0F73Z Introduction of Anti-inflammatory into Respiratory Tract, Via Natural or Artificial Opening (ICD-10-PCS; principal; 2016-05-27)
DX: A41.9 Sepsis, unspecified organism (principal); L03.114 Cellulitis of left upper limb; N17.9 Acute kidney failure, unspecified; Z68.41 Body mass index [BMI] 40.0-44.9, adult; E10.65 Type 1 diabetes mellitus with hyperglycemia; E87.5 Hyperkalemia; E66.01 Morbid (severe) obesity due to excess calories; I48.91 Unspecified atrial fibrillation; I10 Essential (primary) hypertension; F17.210 Nicotine dependence, cigarettes, uncomplicated; M60.9 Myositis, unspecified; M72.9 Fibroblastic disorder, unspecified; F32.9 Major depressive disorder, single episode, unspecified; Z79.899 Other long term (current) drug therapy; Z86.14 Personal history of Methicillin resistant Staphylococcus aureus infection; Z83.3 Family history of diabetes mellitus; Z82.49 Family history of ischemic heart disease and other diseases of the circulatory system
CPT/HCPCS: 36415; 80048; 80053; 82803; 82962; 83036; 83930; 84484; 85025; 87040; 99283; J1644; J1815; J3370; J3490; J7030; J7060

== ENCOUNTER 2018-11-06 13:49 | Emergency (ER) | payer OTHER ==
--- NOTE | 2018-11-06 14:30 | ER Document Report ---
ED Medical Screen (RME) - General Chief Complaint: Edema Stated Complaint: LEG SWELLING Time Seen by Provider: 11/06/18 14:23 Mode of Arrival: Ambulatory Information source: Patient Notes: Patient presents emergency department with bilateral leg swelling abdominal swelling, SOB, wheezing for over a week.. Patient is a diabetic. Also reports he is short of breath unable to lay flat when he sleeps. Denies cardiac disease. Reports he saw his provider earlier this week and they placed him on Lasix 40 mg p.o. daily. No other complaints such as fever vomiting diarrhea no complaints of chest pain. I have greeted and performed a rapid initial assessment of this patient. A comprehensive ED assessment and evaluation of the patient, analysis of test results and completion of the medical decision making process will be conducted by additional ED providers. Dictation of this chart was performed using voice recognition software; therefore, there may be some unintended grammatical errors. TRAVEL OUTSIDE OF THE [place] IN LAST 30 DAYS: No - Related Data Allergies/Adverse Reactions: No Known Allergies Allergy (Verified 11/06/18 13:50) Past Medical History - Social History Chew tobacco use (# tins/day): No Frequency of alcohol use: None Drug Abuse: None - Past Medical History Cardiac Medical History: Reports: Hx Hypertension Pulmonary Medical History: Denies: Hx Tuberculosis Neurological Medical History: Denies: Hx Seizures Endocrine Medical History: Reports: Hx Diabetes Mellitus Type 1, Hx Diabetes Mellitus Type 2 Renal/ Medical History: Denies: Hx Peritoneal Dialysis Skin Medical History: Denies Hx Eczema, Reports Hx MRSA, Denies Hx Psoriasis Psychiatric Medical History: Reports: Hx Depression Infectious Medical History: Reports: Hx MRSA Past Surgical History: Reports: Other - Incision and drainage perirectal abscess 6 years ago.. Denies: Hx Pacemaker - Immunizations Immunizations up to date: Yes Hx Diphtheria, Pertussis, Tetanus Vaccination: Yes Physical Exam - Vital signs Vitals: Temp Pulse Resp BP Pulse Ox 97.7 F 80 26 H 171/81 H 97 11/06/18 14:10 11/06/18 14:10 11/06/18 14:10 11/06/18 14:10 11/06/18 14:10 Course - Vital Signs Vital signs: Temp Pulse Resp BP Pulse Ox 97.7 F 80 26 H 171/81 H 97 11/06/18 14:10 11/06/18 14:10 11/06/18 14:10 11/06/18 14:10 11/06/18 14:10
[2018-11-06 15:04] LABS: ABSOLUTE BASOPHILS # (AUTO) 0.1 10^3/uL (0.0-0.2); ABSOLUTE EOSINOPHILS # (AUTO) 0.2 10^3/uL (0.0-0.6); ABSOLUTE LYMPHOCYTES (AUTO) 1.4 10^3/uL (0.5-4.7); ABSOLUTE MONOCYTES (AUTO) 0.7 10^3/uL (0.1-1.4); ABSOLUTE NEUT (AUTO) 4.4 10^3/uL (1.7-8.2); BASOPHILS % (AUTO) 0.8 % (0-2); EOSINOPHILS % (AUTO) 2.4 % (0-6); HEMATOCRIT 33.1 % (37.9-51.0); HEMOGLOBIN 10.7 g/dL (13.5-17.0); LYMPHOCYTES % (AUTO) 20.3 % (13-45); MEAN CORPUSCULAR HEMOGLOBIN 23.4 pg (27.0-33.4); MEAN CORPUSCULAR HGB CONC 32.2 g/dL (32.0-36.0); MEAN CORPUSCULAR VOLUME 73 fl (80-97); MONOCYTES % (AUTO) 9.9 % (3-13); PLATELET COUNT 216 10^3/uL (150-450); RED BLOOD COUNT 4.55 10^6/uL (4.35-5.55); RED CELL DISTRIBUTION WIDTH 16.6 % (11.5-14.0); SEGMENTED NEUTROPHILS % (AUTO) 66.6 % (42-78); TOTAL CELLS COUNTED % (AUTO) 100 %; WHITE BLOOD COUNT 6.7 10^3/uL (4.0-10.5)
[2018-11-06 15:08] LABS: INTERNATIONAL RATION (INR) 1.03; PROTHROMBIN TIME 13.5 SEC (11.4-15.4)
[2018-11-06 15:09] LABS: PARTIAL THROMBOPLASTIN TIME 26.9 SEC (23.5-35.8)
[2018-11-06 15:18] LABS: ALANINE AMINOTRANSFERASE 25 U/L (21-72); ALBUMIN 4.1 g/dL (3.5-5.0); ALKALINE PHOSPHATASE 77 U/L (38-126); ANION GAP 10 (5-19); ASPARTATE AMINO TRANSFERASE 27 U/L (17-59); BILIRUBIN,DIRECT 0.4 mg/dL (0.0-0.4); BILIRUBIN,TOTAL 0.4 mg/dL (0.2-1.3); BLOOD UREA NITROGEN 59 mg/dL (7-20); CALCIUM 8.5 mg/dL (8.4-10.2); CARBON DIOXIDE 26 mmol/L (22-30); CHLORIDE 104 mmol/L (98-107); CREATINE KINASE 453 U/L (55-170); GLUCOSE 103 mg/dL (75-110); POTASSIUM 5.3 mmol/L (3.6-5.0); SODIUM 140.2 mmol/L (137-145); TOTAL PROTEIN 7.8 g/dL (6.3-8.2)
[2018-11-06 15:30] LABS: NT PRO BNP 765 pg/mL (5-900)
[2018-11-06 15:32] LABS: TROPONIN I < 0.012 ng/mL
[2018-11-06] MEDS ORDERED: HYDROMORPHONE HCL INJ/PF 2 MG/ML AMPULE IV ONE (15:59)
[2018-11-06] MEDS ORDERED: ONDANSETRON HCL INJ/PF 4 MG/2 ML SDV IV ONE (15:59)
[2018-11-06] MEDS ORDERED: IPRATROPIUM/ALBUTEROL 0.5-2.5 MG/3 ML AMPUL NEB ONE (16:00)
[2018-11-06] MEDS ORDERED: FUROSEMIDE INJ/PF 40 MG/4 ML SDV IV ONE (16:00)
--- NOTE | 2018-11-06 16:05 | ER Document Report ---
ED General - General Chief Complaint: Edema Stated Complaint: LEG SWELLING Time Seen by Provider: 11/06/18 14:23 Primary Care Provider: KARELY MCKEON MD [Primary Care Provider] - Follow up as needed Mode of Arrival: Ambulatory Information source: Patient, Relative, [facility] Records Notes: 58-year-old male with hypertension, type 1 diabetes (insulin-dependent) presents with complaint of lower extremity edema and shortness of breath that has been ongoing for 2 weeks. Patient states that his leg swelling started initially in his feet and slowly worsened. He does complain of a burning pain in his feet and lower extremities. He was seen by his primary care physician for this and started on Lasix. Patient's dyspnea is intermittent and worse with laying flat but the patient is over 400 pounds. Patient does have a 25-year smoking history but states he quit smoking approximately 2 years ago. He states he has been compliant with his medication. Patient denies any fever, chills, nausea, vomiting, chest pain, abdominal pain, dysuria, hematuria, history of PE, DVT. TRAVEL OUTSIDE OF THE [place] IN LAST 30 DAYS: No - HPI Onset: Last week Onset/Duration: Gradual, Persistent Quality of pain: Burning Severity: Mild Associated symptoms: Body/muscle aches, Leg swelling, Shortness of breath. denies: Chest pain, Diarrhea, Fever, Nausea, Vomiting Exacerbated by: Movement Relieved by: Remaining still Similar symptoms previously: Yes Recently seen / treated by doctor: Yes - Related Data Allergies/Adverse Reactions: No Known Allergies Allergy (Verified 11/06/18 13:50) Past Medical History - General Information source: Patient - Social History Smoking Status: Former Smoker Chew tobacco use (# tins/day): No Frequency of alcohol use: None Drug Abuse: None Lives with: Spouse/Significant other Family History: DM Patient has suicidal ideation: No Patient has homicidal ideation: No - Past Medical History Cardiac Medical History: Reports: Hx Hypertension Pulmonary Medical History: Denies: Hx Tuberculosis Neurological Medical History: Denies: Hx Seizures Endocrine Medical History: Reports: Hx Diabetes Mellitus Type 1, Hx Diabetes Mellitus Type 2 Renal/ Medical History: Denies: Hx Peritoneal Dialysis Skin Medical History: Denies Hx Eczema, Reports Hx MRSA, Denies Hx Psoriasis Psychiatric Medical History: Reports: Hx Depression Infectious Medical History: Reports: Hx MRSA Past Surgical History: Reports: Other - Incision and drainage perirectal abscess 6 years ago.. Denies: Hx Pacemaker - Immunizations Immunizations up to date: Yes Hx Diphtheria, Pertussis, Tetanus Vaccination: Yes Review of Systems - Review of Systems Notes: REVIEW OF SYSTEMS: CONSTITUTIONAL : Denies fever, chills, or sweats. Denies recent illness. Denies weight loss, recent hospitalizations. EENT: Denies visual changes, eye pain. Denies sore throat, oral lesions, difficulty swallowing. CARDIOVASCULAR: Denies chest pain. Denies palpitations. + lower extremity edema. RESPIRATORY: + cough. + shortness of breath, wheezing. GASTROINTESTINAL: Denies abdominal pain or distention. Denies nausea, vomiting, or diarrhea. Denies blood in vomitus, stools, or per rectum. Denies black, tarry stools. Denies constipation. GENITOURINARY: Denies difficulty urinating, painful urination, frequency, blood in urine, testicular pain or penile discharge. MUSCULOSKELETAL: Denies back or neck pain or stiffness. Denies joint pain or swelling. SKIN: Denies rash, lesions or sores. HEMATOLOGIC : Denies easy bruising or bleeding. LYMPHATIC: Denies swollen glands. NEUROLOGICAL: Denies confusion or altered mental status. Denies loss of consciousness. Denies dizziness or lightheadedness. Denies headache. Denies weakness or paralysis. Denies problems difficulty with ambulation, slurred speech. Denies sensory loss, numbness, or tingling. Denies seizures. PSYCHIATRIC: Denies anxiety or stress. Denies depression, suicidal ideation, or Physical Exam - Vital signs Vitals: Temp Pulse Resp BP Pulse Ox 97.7 F 80 26 H 171/81 H 97 11/06/18 14:10 11/06/18 14:10 11/06/18 14:10 11/06/18 14:10 11/06/18 14:10 - Notes Notes: PHYSICAL EXAMINATION: GENERAL: Morbidly obese, no acute distress HEAD: Atraumatic, normocephalic. EYES: Pupils equal round and reactive to light, extraocular movements intact, sclera anicteric, conjunctiva are normal. ENT: Nares patent, oropharynx clear without exudates. Moist mucous membranes. NECK: Normal range of motion, supple without lymphadenopathy LUNGS: Breath sounds clear to auscultation bilaterally and equal. No wheezes rales or rhonchi. HEART: Regular rate and rhythm without murmurs ABDOMEN: Soft, nontender, nondistended abdomen. Large pannus. No guarding, no rebound. No masses appreciated. Musculoskeletal: Normal range of motion, 1+ pitting edema bilaterally. No cyanosis. NEUROLOGICAL: Cranial nerves grossly intact. Normal speech, normal gait. Normal sensory, motor exams PSYCH: Normal mood, normal affect. SKIN: Warm, Dry, normal turgor, no rashes or lesions noted. Course - Re-evaluation Re-evalutation: Temp Pulse Resp BP Pulse Ox 97.7 F 80 26 H 171/81 H 97 11/06/18 14:10 11/06/18 14:10 11/06/18 14:10 11/06/18 14:10 11/06/18 14:10 Laboratory 11/06/18 11/06/18 11/06/18 14:44 14:44 14:44 WBC 6.7 RBC 4.55 Hgb 10.7 L Hct 33.1 L MCV 73 L MCH 23.4 L MCHC 32.2 RDW 16.6 H Plt Count 216 Seg Neutrophils % 66.6 Lymphocytes % 20.3 Monocytes % 9.9 Eosinophils % 2.4 Basophils % 0.8 Absolute Neutrophils 4.4 Absolute Lymphocytes 1.4 Absolute Monocytes 0.7 Absolute Eosinophils 0.2 Absolute Basophils 0.1 PT INR APTT VBG pH VBG pCO2 VBG HCO3 VBG Base Excess Sodium 140.2 Potassium 5.3 H Chloride 104 Carbon Dioxide 26 Anion Gap 10 BUN 59 H Creatinine 2.06 H Est GFR ( Amer) 41 L Est GFR (Non-Af Amer) 34 L Glucose 103 Calcium 8.5 Total Bilirubin 0.4 Direct Bilirubin 0.4 Neonat Total Bilirubin Not Reportable Neonat Direct Bilirubin Not Reportable Neonat Indirect Bili Not Reportable AST 27 ALT 25 Alkaline Phosphatase 77 Creatine Kinase 453 H Troponin I < 0.012 NT-Pro-B Natriuret Pep 765 Total Protein 7.8 Albumin 4.1 Urine Color Urine Appearance Urine pH Ur Specific [place] Urine Protein Urine Glucose (UA) Urine Ketones Urine Blood Urine Nitrite Urine Bilirubin Urine Urobilinogen Ur Leukocyte Esterase Urine WBC (Auto) Urine RBC (Auto) U Hyaline Cast (Auto) Squamous Epi Cells Auto Urine Mucus (Auto) Urine Ascorbic Acid 11/06/18 11/06/18 11/06/18 14:44 14:44 16:15 WBC RBC Hgb Hct MCV MCH MCHC RDW Plt Count Seg Neutrophils % Lymphocytes % Monocytes % Eosinophils % Basophils % Absolute Neutrophils Absolute Lymphocytes Absolute Monocytes Absolute Eosinophils Absolute Basophils PT 13.5 INR 1.03 APTT 26.9 VBG pH 7.35 VBG pCO2 48.8 VBG HCO3 26.0 VBG Base Excess 0 Sodium Potassium Chloride Carbon Dioxide Anion Gap BUN Creatinine Est GFR ( Amer) Est GFR (Non-Af Amer) Glucose Calcium Total Bilirubin Direct Bilirubin Neonat Total Bilirubin Neonat Direct Bilirubin Neonat Indirect Bili AST ALT Alkaline Phosphatase Creatine Kinase Troponin I NT-Pro-B Natriuret Pep Total Protein Albumin Urine Color YELLOW Urine Appearance CLEAR Urine pH 6.0 Ur Specific [place] 1.011 Urine Protein NEGATIVE Urine Glucose (UA) NEGATIVE Urine Ketones NEGATIVE Urine Blood SMALL H Urine Nitrite NEGATIVE Urine Bilirubin NEGATIVE Urine Urobilinogen NEGATIVE Ur Leukocyte Esterase NEGATIVE Urine WBC (Auto) 1 Urine RBC (Auto) 2 U Hyaline Cast (Auto) 1 Squamous Epi Cells Auto <1 Urine Mucus (Auto) RARE Urine Ascorbic Acid NEGATIVE Chest CT 11/06/18 15:58 IMPRESSION: NO SIGNIFICANT FINDING ON NON-CONTRASTED CHEST CT. 11/06/18 16:03 58-year-old male presents with complaint of leg swelling and dyspnea. Patient states this was been going on for approximately 2 weeks. Patient was seen by his PCP and started on Lasix. Patient's exam is significant for morbid obesity, large abdominal pannus and bilateral lower extremity pitting edema. 11/07/18 23:46 Patient has no evidence of heart failure. He does have a mild ANTHONY likely secondary to Lasix use and poor fluid intake. Patient was hydrated in the emergency department. He was advised to wear compression hose. Patient will require significant weight loss which is likely contributing to his edema and dyspnea. Patient was provided copies of his imaging and lab work that was performed today. Patient was evaluated and treated as appropriate for the patient's presenting symptoms and complaint, with consideration of any critical or life threatening conditions that may be associated with their obtained history and exam as noted above. All results were discussed with patient and his who is at the bedside. patient provided the opportunity to ask questions, and express concerns. Patient was educated on treatments based on their presumed diagnosis as noted above. At this time we will discharge the patient with return precautions and follow-up recommendations. Verbal discharge instructions given a the bedside. Medication warnings reviewed. Patient is in agreement with this plan and has verbalized understanding of return precautions. After careful consideration I feel that that patient can be safely discharged from the emergency department, they were advised to followup with a primary care physician in 2-3 days. Dictation on this chart was performed using voice recognition software and may result in unintended grammatical, spelling, syntax or errors. - Vital Signs Vital signs: Temp Pulse Resp BP Pulse Ox 98.4 F 130 H 20 150/71 H 95 11/06/18 20:17 11/06/18 20:17 11/06/18 20:17 11/06/18 20:17 11/06/18 20:17 - Laboratory Result Diagrams: 11/06/18 14:44 11/06/18 14:44 Laboratory results interpreted by me: 11/06/18 11/06/18 11/06/18 14:44 14:44 14:44 Hgb 10.7 L Hct 33.1 L MCV 73 L MCH 23.4 L RDW 16.6 H Potassium 5.3 H BUN 59 H Creatinine 2.06 H Est GFR ( Amer) 41 L Est GFR (Non-Af Amer) 34 L Creatine Kinase 453 H Urine Blood SMALL H - Diagnostic Test Radiology reviewed: Image reviewed, Reports reviewed - EKG Interpretation by Me EKG shows normal: Sinus rhythm Rate: Normal Rhythm: NSR When compared to previous EKG there are: No significant change Discharge - Discharge Clinical Impression: Peripheral edema Kidney injury Qualifiers: Encounter type: initial encounter Laterality: unspecified laterality Qualified Code(s): S37.009A - Unspecified injury of unspecified kidney, initial encounter Hypertension Qualifiers: Hypertension type: unspecified Qualified Code(s): I10 - Essential (primary) hypertension Condition: Good Disposition: HOME, SELF-CARE Instructions: Edema, Peripheral ([facility]), Kidney Injury ([facility]) Additional Instructions: Please be sure to drink plenty of fluids while out in the heat. You can purchase packets of electrolyte replacement solutions such as Pedialyte or propel that you can add to plain water. This will help to make sure that you are getting adequate electrolytes in addition to fluids while working outside. Please return to the emergency department if you pass out, developed diffuse muscle cramping, have persistent vomiting, or have any other symptoms that are worrisome to you. Please purchase compression hose for your leg swelling Discontinue your Lasix until you talk to your primary care physician. Follow up with your [id number] hours for further care or return to the ED IMMEDIATELY if symptoms worsen or you have any concerns. If you cannot afford to follow up with your primary care physician a list of low cost clinics have been provided at the end of your discharge papers as well. Most prescribed medications have multiple side effects. The safest thing to do is when filling your prescription speak to your pharmacist regarding possible interactions with your normal home medications and over the counter medications such as Ibuprofen, Tylenol, Benadryl. If you experience any symptoms that cause you discomfort or concern you should discontinue the medication immediately and return to the emergency room or call your primary care physician. Prescriptions: Hydrocodone/Acetaminophen [[place] 5-325 mg Tablet] 1 tab PO Q6H #10 tablet Referrals: KARELY MCKEON MD [Primary Care Provider] - Follow up as needed
[2018-11-06 16:11] LABS: APPEARANCE,URINE CLEAR; BILIRUBIN,URINE NEGATIVE (NEGATIVE); COLOR,URINE YELLOW; GLUCOSE, URINE NEGATIVE (NEGATIVE); KETONES,URINE NEGATIVE (NEGATIVE); LEUKOCYTE ESTERASE,URINE NEGATIVE (NEGATIVE); NITRITE,URINE NEGATIVE (NEGATIVE); PROTEIN,URINE NEGATIVE (NEGATIVE); URINE SPECIFIC GRAVITY 1.011; UROBILINOGEN,URINE NEGATIVE mg/dL (<2.0)
[2018-11-06 16:29] LABS: VENOUS BLOOD PCO2 48.8 mmHg (35-63); VENOUS BLOOD PH 7.35 (7.30-7.42)
--- NOTE | 2018-11-06 16:41 | RADIOLOGY REPORT (SQ) ---
EXAM DESCRIPTION: CT CHEST WITHOUT COMPLETED DATE/TIME: 11/06/2018 4:29 pm REASON FOR STUDY: dyspnea COMPARISON: Two-view chest 12/08/2006 TECHNIQUE: CT scan performed of the chest without intravenous contrast. Images reviewed with lung, soft tissue and bone windows. Reconstructed coronal and sagittal MPR images reviewed. All images st ored on PACS. All CT scanners at this facility use dose modulation, iterative reconstruction, and/or weight based d osing when appropriate to reduce radiation dose to as low as reasonably achievable (ALARA). [facility]: Dose Right [facility]: CareDose [facility]: Dose Right [facility]: Teradose 4D [facility]: Pix4D RADIATION DOSE: CT Rad equipment meets quality standard of care and radiation dose reduction techniq ues were employed. CTDIvol: 30.0 mGy. DLP: 1032 mGy-cm. mGy. LIMITATIONS: Morbid obesity FINDINGS: LUNGS AND PLEURA: Minimal bandlike atelectasis in the right posterior lung base axial imag e 42, coronal image 80. Noncalcified granulomas are present bilaterally, subpleural location, benign in appearance. No pleural effusion. No pneumothorax. HILAR AND MEDIASTINAL STRUCTURES: No identified masses or abnormal nodes. No obvious aneurysm. HEART AND VASCULAR STRUCTURES: No aneurysm. No pericardial effusion. UPPER ABDOMEN: Not well seen THYROID AND OTHER SOFT TISSUES: No masses. No adenopathy. BONES: No significant finding. HARDWARE: None in the chest. OTHER: No other significant findings. IMPRESSION: NO SIGNIFICANT FINDING ON NON-CONTRASTED CHEST CT. TECHNICAL DOCUMENTATION: JOB ID: [id number] Quality ID # [id number]: Final reports with documentation of one or more dose reduction techniques (e.g., Au tomated exposure control, adjustment of the mA and/or kV according to patient size, use of iterative reconstruction technique) 2010 [employer]- All Rights Reserved Reading location - IP/workstation name: [email or web address]
[2018-11-06] MEDS ORDERED: NORMAL SALINE 1000 ML 1,000 ML IV ONE (19:08)
--- NOTE | 2018-11-06 19:17 | EKG REPORT ---
SEVERITY:- ABNORMAL ECG - SINUS RHYTHM ABNORMAL T, CONSIDER ISCHEMIA, LATERAL LEADS : Confirmed by: Gucci Herrera 06-Nov-2018 19:16:07
[2018-11-06 20:20] VITALS: BP 150/71
== END 2018-11-06 20:26 | disposition home or self-care (01) ==
LOC: EEVIPCON 13:49 → ER 13:49
DX: R60.9 Edema, unspecified (principal); R06.02 Shortness of breath; N17.9 Acute kidney failure, unspecified; M79.10 Myalgia, unspecified site; I10 Essential (primary) hypertension; E10.9 Type 1 diabetes mellitus without complications; E66.01 Morbid (severe) obesity due to excess calories; Z79.84 Long term (current) use of oral hypoglycemic drugs; Z87.891 Personal history of nicotine dependence; Z86.14 Personal history of Methicillin resistant Staphylococcus aureus infection
CPT/HCPCS: 93005; 94640; 99284; 96361; 96374; 96375; 36415; 82550; 85025; 85610; 85730; 80053; 81001; 84484; 82803; 83880; 71250; 93010; J1940; J1170; J2405; J7030; J7620

== ENCOUNTER → 2019-06-06 | Outpatient (CLI) | payer OTHER ==
[2019-06-06 15:31] LABS: ABSOLUTE EOSINOPHILS # (AUTO) 0.2 10^3/uL (0.0-0.6); ABSOLUTE LYMPHOCYTES (AUTO) 1.2 10^3/uL (0.5-4.7); ABSOLUTE MONOCYTES (AUTO) 0.6 10^3/uL (0.1-1.4); ABSOLUTE NEUT (AUTO) 3.4 10^3/uL (1.7-8.2); BASOPHILS % (AUTO) 0.6 % (0-2); HEMATOCRIT 33.8 % (37.9-51.0); HEMOGLOBIN 10.8 g/dL (13.5-17.0); LYMPHOCYTES % (AUTO) 21.9 % (13-45); MEAN CORPUSCULAR HEMOGLOBIN 23.4 pg (27.0-33.4); MEAN CORPUSCULAR HGB CONC 31.9 g/dL (32.0-36.0); MEAN CORPUSCULAR VOLUME 74 fl (80-97); MONOCYTES % (AUTO) 10.7 % (3-13); PLATELET COUNT 210 10^3/uL (150-450); RED CELL DISTRIBUTION WIDTH 16.2 % (11.5-14.0); SEGMENTED NEUTROPHILS % (AUTO) 63.8 % (42-78); TOTAL CELLS COUNTED % (AUTO) 100 %; WHITE BLOOD COUNT 5.3 10^3/uL (4.0-10.5)
[2019-06-06 15:37] LABS: APPEARANCE,URINE SLIGHTLY-CLOUDY; BILIRUBIN,URINE NEGATIVE (NEGATIVE); COLOR,URINE YELLOW; GLUCOSE, URINE NEGATIVE (NEGATIVE); KETONES,URINE NEGATIVE (NEGATIVE); LEUKOCYTE ESTERASE,URINE NEGATIVE (NEGATIVE); NITRITE,URINE NEGATIVE (NEGATIVE); PROTEIN,URINE NEGATIVE (NEGATIVE); URINE SPECIFIC GRAVITY 1.012; UROBILINOGEN,URINE NEGATIVE mg/dL (<2.0)
[2019-06-06 15:51] LABS: ALBUMIN 3.7 g/dL (3.5-5.0); ALKALINE PHOSPHATASE 86 U/L (38-126); ANION GAP 11 (5-19); ASPARTATE AMINO TRANSFERASE 23 U/L (17-59); BILIRUBIN,DIRECT 0.3 mg/dL (0.0-0.4); BILIRUBIN,TOTAL 0.3 mg/dL (0.2-1.3); BLOOD UREA NITROGEN 52 mg/dL (7-20); CALCIUM 8.1 mg/dL (8.4-10.2); CARBON DIOXIDE 19 mmol/L (22-30); CHLORIDE 108 mmol/L (98-107); GLUCOSE 205 mg/dL (75-110); POTASSIUM 4.9 mmol/L (3.6-5.0); TOTAL PROTEIN 7.4 g/dL (6.3-8.2)
== END ==
LOC: OD 14:38
PROVIDERS: ATTEND Internal Medicine Nephrology
DX: I12.9 Hypertensive chronic kidney disease with stage 1 through stage 4 chronic kidney disease, or unspecified chronic kidney disease (principal); N18.3 Chronic kidney disease, stage 3 (moderate); E11.22 Type 2 diabetes mellitus with diabetic chronic kidney disease; R60.9 Edema, unspecified; E66.01 Morbid (severe) obesity due to excess calories
CPT/HCPCS: 36415; 80053; 81001; 83735; 85025

== ENCOUNTER 2019-08-29 15:31 | Emergency (ER) | payer OTHER ==
--- NOTE | 2019-08-29 16:48 | RADIOLOGY REPORT (SQ) ---
EXAM DESCRIPTION: CHEST SINGLE VIEW IMAGES COMPLETED DATE/TIME: 08/29/2019 4:29 pm REASON FOR STUDY: sob COMPARISON: PA and lateral views of the chest from 12/08/2006. EXAM PARAMETERS: NUMBER OF VIEWS: One view. TECHNIQUE: An AP view of the chest was obtained. RADIATION DOSE: NA LIMITATIONS: None. FINDINGS: LUNGS AND PLEURA: Low inspiratory lung volumes without a superimposed consolidation, pleur al effusion or pneumothorax. MEDIASTINUM AND HILAR STRUCTURES: No mediastinal or hilar contour abnormality. HEART AND VASCULAR STRUCTURES: The cardiac silhouette is enlarged. The pulmonary vasculature is with in normal limits given the low inspiratory lung volumes. BONES: No acute findings. HARDWARE: None in the chest. OTHER: No other finding. IMPRESSION: Cardiomegaly and low inspiratory lung volumes without a superimposed acute cardiopulmona ry process. TECHNICAL DOCUMENTATION: JOB ID: [id number] 2010 [employer]- All Rights Reserved Reading location - IP/workstation name: [email or web address]
[2019-08-29 16:54] LABS: ABSOLUTE BASOPHILS # (AUTO) 0.1 10^3/uL (0.0-0.2); ABSOLUTE EOSINOPHILS # (AUTO) 0.1 10^3/uL (0.0-0.6); ABSOLUTE MONOCYTES (AUTO) 0.7 10^3/uL (0.1-1.4); BASOPHILS % (AUTO) 1.1 % (0-2); EOSINOPHILS % (AUTO) 1.3 % (0-6); HEMATOCRIT 30.9 % (37.9-51.0); HEMOGLOBIN 10.1 g/dL (13.5-17.0); MEAN CORPUSCULAR HEMOGLOBIN 23.6 pg (27.0-33.4); MEAN CORPUSCULAR HGB CONC 32.5 g/dL (32.0-36.0); MEAN CORPUSCULAR VOLUME 73 fl (80-97); MONOCYTES % (AUTO) 8.8 % (3-13); PLATELET COUNT 264 10^3/uL (150-450); RED BLOOD COUNT 4.26 10^6/uL (4.35-5.55); RED CELL DISTRIBUTION WIDTH 16.7 % (11.5-14.0); SEGMENTED NEUTROPHILS % (AUTO) 75.8 % (42-78); TOTAL CELLS COUNTED % (AUTO) 100 %; WHITE BLOOD COUNT 7.9 10^3/uL (4.0-10.5)
[2019-08-29 17:26] LABS: TROPONIN I 0.013 ng/mL
[2019-08-29 17:27] LABS: ALKALINE PHOSPHATASE 81 U/L (38-126); ANION GAP 10 (5-19); ASPARTATE AMINO TRANSFERASE 37 U/L (17-59); BILIRUBIN,DIRECT 0.1 mg/dL (0.0-0.4); BILIRUBIN,TOTAL 0.5 mg/dL (0.2-1.3); BLOOD UREA NITROGEN 51 mg/dL (7-20); CALCIUM 7.5 mg/dL (8.4-10.2); CARBON DIOXIDE 25 mmol/L (22-30); CHLORIDE 106 mmol/L (98-107); TOTAL PROTEIN 7.9 g/dL (6.3-8.2)
[2019-08-29 17:35] LABS: GLUCOSE 64 mg/dL (75-110)
[2019-08-29] MEDS ORDERED: ENOXAPARIN SODIUM INJ 150 MG/1 ML DISP.SYRIN SUBCUT ONE (18:55)
--- NOTE | 2019-08-29 19:49 | ER Document Report ---
ED Extremity Problem, Lower - General Chief Complaint: Leg Swelling Stated Complaint: COUGH Time Seen by Provider: 08/29/19 15:53 Primary Care Provider: Laura RIOJAS MD [Primary Care Provider] - Follow up as needed Mode of Arrival: Ambulatory Information source: Patient TRAVEL OUTSIDE OF THE [place] IN LAST 30 DAYS: No - HPI Notes: Patient was sent from primary care physician's office for shortness of breath. Patient states over the last several weeks has become more short of breath. He denies any cough cold or congestion. He denies any known exposures to COVID virus. He states he is never been diagnosed with congestive heart failure in the past. Patient denies any history of COPD. He states he has noticed leg swelling and he has gained about 40 pounds over the last several months. Patient shortness of breath is moderate. It is constant. It is worse with exertion and better with rest. It does not radiate. He states he is never had a pulmonary embolism or deep venous thrombosis. However he states that his physician was concerned about this and that is why he sent him to the emergency department. - Related Data Allergies/Adverse Reactions: No Known Allergies Allergy (Verified 11/06/18 13:50) Home Medications: insulin, blood pressure pills, gabapentin Past Medical History - General Information source: Patient - Social History Smoking Status: Never Smoker Chew tobacco use (# tins/day): No Frequency of alcohol use: Occasional Drug Abuse: None Family History: DM Patient has suicidal ideation: No Patient has homicidal ideation: No - Past Medical History Cardiac Medical History: Reports: Hx Hypertension Pulmonary Medical History: Denies: Hx Tuberculosis Neurological Medical History: Denies: Hx Seizures Endocrine Medical History: Reports: Hx Diabetes Mellitus Type 1, Hx Diabetes Mellitus Type 2 Renal/ Medical History: Denies: Hx Peritoneal Dialysis Skin Medical History: Denies Hx Eczema, Reports Hx MRSA, Denies Hx Psoriasis Psychiatric Medical History: Reports: Hx Depression Infectious Medical History: Reports: Hx MRSA Past Surgical History: Reports: Other - Incision and drainage perirectal abscess 6 years ago.. Denies: Hx Pacemaker - Immunizations Immunizations up to date: Yes Hx Diphtheria, Pertussis, Tetanus Vaccination: Yes Review of Systems - Review of Systems Constitutional: denies: Chills, Fever Cardiovascular: denies: Chest pain, Palpitations Respiratory: Short of breath. denies: Cough -: Yes All other systems reviewed and negative Physical Exam - Vital signs Vitals: Temp Pulse Resp BP Pulse Ox 98 F 85 24 H 167/89 H 98 08/29/19 15:31 08/29/19 15:31 08/29/19 15:31 08/29/19 15:31 08/29/19 15:31 Interpretation: Hypertensive - General General appearance: Appears well, Alert - HEENT Head: Normocephalic, Atraumatic Eyes: Normal Pupils: PERRL - Respiratory Respiratory status: Tachypnea - mild Chest status: Nontender Breath sounds: Decreased air movement Chest palpation: Normal - Cardiovascular Rhythm: Regular Heart sounds: Normal auscultation Murmur: No - Abdominal Inspection: Normal Distension: No distension Bowel sounds: Normal Tenderness: Nontender Organomegaly: No organomegaly - Back Back: Normal, Nontender - Extremities General upper extremity: Normal inspection, Nontender, Normal color, Normal ROM, Normal temperature General lower extremity: Nontender, Edema - 2+ bilat, Normal color, Normal ROM, Normal temperature. No: Sary's sign - Neurological Neuro grossly intact: Yes Cognition: Normal Orientation: AAOx4 [place] Coma Scale Eye Opening: Spontaneous [place] Coma Scale Verbal: Oriented [place] Coma Scale Motor: Obeys Commands [place] Coma Scale Total: 15 Speech: Normal Motor strength normal: LUE, RUE, LLE, RLE Sensory: Normal - Psychological Associated symptoms: Normal affect, Normal mood - Skin Skin Temperature: Warm Skin Moisture: Dry Skin Color: Normal Course - Re-evaluation Re-evalutation: 08/29/19 19:46 Patient was referred for evaluation for pulmonary embolism. Patient's d-dimer is elevated at 1.8. However patient's body weight is more than the CT or VQ table can handle. Therefore he will be transferred to [facility] to have an evaluation for pulmonary embolism. In the meantime I have given him a shot of Lovenox. He does have some mild failure by laboratories although he does not sound "wet". Chest x-ray is also unremarkable for acute process. No fevers. - Vital Signs Vital signs: Temp Pulse Resp BP Pulse Ox 97.5 F 85 13 153/108 H 95 08/29/19 19:02 08/29/19 15:31 08/29/19 19:00 08/29/19 16:01 08/29/19 19:00 - Laboratory Result Diagrams: 08/29/19 16:30 08/29/19 16:30 Laboratory results interpreted by me: 08/29/19 08/29/19 08/29/19 16:30 16:30 16:30 RBC 4.26 L Hgb 10.1 L Hct 30.9 L MCV 73 L MCH 23.6 L RDW 16.7 H D-Dimer BUN 51 H Creatinine 2.31 H Est GFR ( Amer) 35 L Est GFR (MDRD) Non-Af 29 L Glucose 64 L Calcium 7.5 L NT-Pro-B Natriuret Pep 2590 H 08/29/19 16:30 RBC Hgb Hct MCV MCH RDW D-Dimer 1.83 H BUN Creatinine Est GFR ( Amer) Est GFR (MDRD) Non-Af Glucose Calcium NT-Pro-B Natriuret Pep - Diagnostic Test Radiology reviewed: Image reviewed, Reports reviewed - EKG Interpretation by Me EKG shows normal: Sinus rhythm Rate: Normal - 75 Rhythm: NSR [place]/QRS: No: Right axis deviation, Left axis deviation Discharge - Discharge Clinical Impression: Morbid obesity with BMI of 40.0-44.9, adult Dyspnea Qualifiers: Dyspnea type: dyspnea on exertion Qualified Code(s): R06.00 - Dyspnea, unspecified Condition: Stable Disposition: [facility] Referrals: Laura RIOJAS MD [Primary Care Provider] - Follow up as needed
[2019-08-29] MEDS ORDERED: NITROGLYCERIN 2% OINTMENT 1 GM PACKET TP ONE (20:45)
--- NOTE | 2019-08-29 21:42 | EKG REPORT ---
SEVERITY:- BORDERLINE ECG - SINUS RHYTHM PROBABLE LEFT ATRIAL ABNORMALITY BORDERLINE PROLONGED QT INTERVAL : Confirmed by: Concepcion Wolf MD 29-Aug-2019 21:41:30
[2019-08-29 22:34] VITALS: BP 163/92
== END 2019-08-29 22:00 | disposition short-term general hospital (02) ==
LOC: ER 15:31
DX: R06.02 Shortness of breath (principal); E66.01 Morbid (severe) obesity due to excess calories; Z68.41 Body mass index [BMI] 40.0-44.9, adult; R60.0 Localized edema; R79.89 Other specified abnormal findings of blood chemistry; I10 Essential (primary) hypertension; E11.9 Type 2 diabetes mellitus without complications; Z79.4 Long term (current) use of insulin; Z79.899 Other long term (current) drug therapy
CPT/HCPCS: 93005; 99284; 96372; 36415; 85025; 80053; 84484; 85379; 83880; 71045; 93010; J1650

== ENCOUNTER 2019-11-18 17:56 | Emergency (ER) | payer OTHER ==
[2019-11-18 20:36] LABS: ABSOLUTE EOSINOPHILS # (AUTO) 0.2 10^3/uL (0.0-0.6); ABSOLUTE MONOCYTES (AUTO) 0.6 10^3/uL (0.1-1.4); ABSOLUTE NEUT (AUTO) 3.1 10^3/uL (1.7-8.2); EOSINOPHILS % (AUTO) 3.3 % (0-6); HEMATOCRIT 31.7 % (37.9-51.0); HEMOGLOBIN 10.2 g/dL (13.5-17.0); LYMPHOCYTES % (AUTO) 20.4 % (13-45); MEAN CORPUSCULAR HEMOGLOBIN 23.3 pg (27.0-33.4); MEAN CORPUSCULAR HGB CONC 32.2 g/dL (32.0-36.0); MEAN CORPUSCULAR VOLUME 72 fl (80-97); PLATELET COUNT 199 10^3/uL (150-450); RED BLOOD COUNT 4.39 10^6/uL (4.35-5.55); RED CELL DISTRIBUTION WIDTH 17.5 % (11.5-14.0); SEGMENTED NEUTROPHILS % (AUTO) 63.3 % (42-78); TOTAL CELLS COUNTED % (AUTO) 100 %; WHITE BLOOD COUNT 4.9 10^3/uL (4.0-10.5)
[2019-11-18 20:55] LABS: ALBUMIN 4.1 g/dL (3.5-5.0); ALKALINE PHOSPHATASE 80 U/L (38-126); ANION GAP 7 (5-19); ASPARTATE AMINO TRANSFERASE 33 U/L (17-59); BILIRUBIN,TOTAL 0.2 mg/dL (0.2-1.3); BLOOD UREA NITROGEN 57 mg/dL (7-20); CALCIUM 7.4 mg/dL (8.4-10.2); CARBON DIOXIDE 26 mmol/L (22-30); CHLORIDE 104 mmol/L (98-107); GLUCOSE 78 mg/dL (75-110); POTASSIUM 4.9 mmol/L (3.6-5.0); TOTAL PROTEIN 7.7 g/dL (6.3-8.2)
[2019-11-18 20:59] LABS: APPEARANCE,URINE CLEAR; BILIRUBIN,URINE NEGATIVE (NEGATIVE); COLOR,URINE STRAW; GLUCOSE, URINE NEGATIVE (NEGATIVE); KETONES,URINE NEGATIVE (NEGATIVE); LEUKOCYTE ESTERASE,URINE TRACE (NEGATIVE); NITRITE,URINE NEGATIVE (NEGATIVE); PROTEIN,URINE NEGATIVE (NEGATIVE); URINE SPECIFIC GRAVITY 1.011; UROBILINOGEN,URINE NEGATIVE mg/dL (<2.0)
[2019-11-18] MEDS ORDERED: CALCIUM GLUC IN NACL, ISO-OSM 1 GM/50 ML RTUPB IV ONE (21:03)
--- NOTE | 2019-11-18 21:11 | ER Document Report ---
ED General - General Chief Complaint: Abnormal Lab Results Stated Complaint: ABNORMAL LABS Time Seen by Provider: 11/18/19 18:20 Primary Care Provider: Laura RIOJAS MD [Primary Care Provider] - Follow up as needed TRAVEL OUTSIDE OF THE [place] IN LAST 30 DAYS: No - HPI Notes: Patient is a 59-year-old male with known chronic renal disease, who presents to the emergency department for evaluation of low calcium. He was sent in by nephrology with a "critically low" calcium. The patient states he has intermittent weakness, but really states it has not been worse than normal. He has chronic numbness and tingling in his legs, he attributes that to his diabetes. No seizure activity. No other new numbness or tingling. He has intermittent shortness of breath, stating he has good days and bad days, has not noticed an increase in by days as of late. He was contacted by nephrology today. They told him to increase his calcium supplementation and present to the ER for further evaluation. - Related Data Allergies/Adverse Reactions: No Known Allergies Allergy (Verified 11/06/18 13:50) Home Medications: List reviewed with patient Past Medical History - General Information source: Patient - Social History Smoking Status: Former Smoker Family History: DM, Hypertension - Past Medical History Cardiac Medical History: Reports: Hx Atrial Fibrillation, Hx Hypertension Pulmonary Medical History: Denies: Hx Tuberculosis Neurological Medical History: Denies: Hx Seizures Endocrine Medical History: Reports: Hx Diabetes Mellitus Type 2 Renal/ Medical History: Reports: Hx Renal Insufficiency. Denies: Hx Peritoneal Dialysis Skin Medical History: Denies Hx Eczema, Reports Hx MRSA, Denies Hx Psoriasis Psychiatric Medical History: Reports: Hx Depression Infectious Medical History: Reports: Hx MRSA Past Surgical History: Reports: Other - Incision and drainage perirectal abscess 6 years ago.. Denies: Hx Pacemaker - Immunizations Immunizations up to date: Yes Hx Diphtheria, Pertussis, Tetanus Vaccination: Yes Review of Systems - Review of Systems Constitutional: Weakness Respiratory: See HPI Neurological/Psychological: See HPI -: Yes All other systems reviewed and negative Physical Exam - Vital signs Vitals: Temp Pulse Resp BP 98.3 F 59 L 24 H 191/84 H 11/18/19 18:02 11/18/19 18:02 11/18/19 18:02 11/18/19 18:02 - Notes Notes: This is a morbidly obese 59-year-old male who appears stated age, no acute distress. Vital signs reviewed, please refer to chart. Head is normocephalic, atraumatic. Pupils equal round, reactive to light. Neck is supple without meningismus. Heart is irregularly irregular. Lungs are clear to auscultation bilaterally. Abdomen is soft, nontender, normoactive bowel sounds throughout. Extremities without cyanosis, clubbing. He has 2+ pitting edema to bilateral lower extremities. Posterior calves are nontender. Peripheral pulses are equal. Skin is warm and dry. Patient is awake, alert, neurological exam is nonfocal. Negative for Chvostek's sign. Course - Re-evaluation Re-evalutation: 11/18/19 21:15 Patient presents to the emergency department for evaluation. Laboratory in vestigations were obtained. His creatinine is mildly elevated, he is mildly hypocalcemic. He is not symptomatic. His EKG shows a borderline prolonged QT interval, but is actually improved compared to the prior study that he had back in August of this year. I will again give him some calcium IV here. He is increased p.o. calcium to take at home. He has an appointment with nephrology to follow-up on Thursday. Otherwise his magnesium is ordered as well, and will be replaced should it be low. Otherwise he will return to the ED with worsening. 11/18/19 21:17 Calcium is low, magnesium is normal. He will receive the IV calcium, start the increased oral calcium, and follow-up as scheduled on Thursday. - Vital Signs Vital signs: Temp Pulse Resp BP Pulse Ox 98.3 F 59 L 24 H 191/84 H 11/18/19 18:02 11/18/19 18:02 11/18/19 18:02 11/18/19 18:02 - Laboratory Result Diagrams: 11/18/19 20:17 11/18/19 20:17 Laboratory results interpreted by me: 11/18/19 11/18/19 11/18/19 19:45 20:17 20:17 Hgb 10.2 L Hct 31.7 L MCV 72 L MCH 23.3 L RDW 17.5 H Sodium 136.6 L BUN 57 H Creatinine 2.97 H Est GFR ( Amer) 27 L Est GFR (MDRD) Non-Af 22 L Calcium 7.4 L Ionized Calcium Leon Urine Blood SMALL H Ur Leukocyte Esterase TRACE H 11/18/19 20:48 Hgb Hct MCV MCH RDW Sodium BUN Creatinine Est GFR ( Amer) Est GFR (MDRD) Non-Af Calcium Ionized Calcium Leon 0.93 L Urine Blood Ur Leukocyte Esterase - EKG Interpretation by Me Additional EKG results interpreted by me: 11/18/19 21:17 Sinus bradycardia with a rate of 59 bpm. Normal axis. Borderline prolonged QT interval, actually improved when compared to prior study of August 29, [address]. No ST elevations concerning for infarction. Discharge - Discharge Clinical Impression: Hypocalcemia Condition: Stable Disposition: HOME, SELF-CARE Additional Instructions: Your calcium level was found to be low today. Please take the increased oral supplementation as prescribed by nephrology. Follow-up as scheduled with them on Thursday. Return to the emergency department with worsening or concerning symptoms of any sort. Referrals: Laura RIOJAS MD [Primary Care Provider] - Follow up as needed
[2019-11-18 22:16] VITALS: BP 147/72
--- NOTE | 2019-11-19 11:50 | EKG REPORT ---
SEVERITY:- BORDERLINE ECG - SINUS BRADYCARDIA BORDERLINE PROLONGED QT INTERVAL : Confirmed by: Raúl Figueroa MD 19-Nov-2019 11:49:37
== END 2019-11-18 22:19 | disposition home or self-care (01) ==
LOC: ER 17:56
DX: E83.51 Hypocalcemia (principal); R20.0 Anesthesia of skin; R53.1 Weakness; Z87.891 Personal history of nicotine dependence; E11.9 Type 2 diabetes mellitus without complications; I10 Essential (primary) hypertension; I48.91 Unspecified atrial fibrillation
CPT/HCPCS: 93005; 99283; 96365; 36415; 87086; 83735; 85025; 80053; 81001; 82330; 93010; J0610

== ENCOUNTER → 2019-11-22 | Outpatient (CLI) | payer OTHER | LOC: OD 10:11 | PROVIDERS: ATTEND Physician Assistant Medical | DX: E83.51 Hypocalcemia (principal) | CPT/HCPCS: 36415; 82310 ==

== ENCOUNTER → 2019-12-28 | Outpatient (CLI) | payer OTHER ==
[2019-12-28 08:08] LABS: HEMATOCRIT 34.3 % (37.9-51.0); HEMOGLOBIN 10.9 g/dL (13.5-17.0); MEAN CORPUSCULAR HEMOGLOBIN 22.9 pg (27.0-33.4); MEAN CORPUSCULAR HGB CONC 31.7 g/dL (32.0-36.0); MEAN CORPUSCULAR VOLUME 72 fl (80-97); PLATELET COUNT 222 10^3/uL (150-450); RED BLOOD COUNT 4.76 10^6/uL (4.35-5.55); RED CELL DISTRIBUTION WIDTH 17.6 % (11.5-14.0); WHITE BLOOD COUNT 4.3 10^3/uL (4.0-10.5)
[2019-12-28 08:21] LABS: ALBUMIN 4.1 g/dL (3.5-5.0); ALKALINE PHOSPHATASE 75 U/L (38-126); ANION GAP 10 (5-19); ASPARTATE AMINO TRANSFERASE 25 U/L (17-59); BILIRUBIN,DIRECT 0.4 mg/dL (0.0-0.4); BILIRUBIN,TOTAL 0.5 mg/dL (0.2-1.3); BLOOD UREA NITROGEN 33 mg/dL (7-20); CARBON DIOXIDE 26 mmol/L (22-30); CHLORIDE 105 mmol/L (98-107); GLUCOSE 114 mg/dL (75-110); PHOSPHORUS 5.2 mg/dL (2.5-4.5); POTASSIUM 4.7 mmol/L (3.6-5.0); TOTAL PROTEIN 7.5 g/dL (6.3-8.2)
[2019-12-28 08:59] LABS: APPEARANCE,URINE CLEAR; BILIRUBIN,URINE NEGATIVE (NEGATIVE); COLOR,URINE YELLOW; GLUCOSE, URINE NEGATIVE (NEGATIVE); KETONES,URINE NEGATIVE (NEGATIVE); LEUKOCYTE ESTERASE,URINE NEGATIVE (NEGATIVE); NITRITE,URINE NEGATIVE (NEGATIVE); PROTEIN,URINE 100 mg/dL (NEGATIVE); URINE SPECIFIC GRAVITY 1.013; UROBILINOGEN,URINE NEGATIVE mg/dL (<2.0)
== END ==
LOC: OD 07:25
PROVIDERS: ATTEND Internal Medicine Nephrology
DX: N18.4 Chronic kidney disease, stage 4 (severe) (principal)
CPT/HCPCS: 36415; 80053; 81001; 82306; 83735; 83970; 84100; 85027